=== PATIENT | male | born 1965 | race Two or more races ===

== ENCOUNTER 2018-04-12 09:07 | Inpatient (IN) | payer OTHER ==
--- NOTE | 2018-04-12 09:39 | PDOC ---
History of Present Illness - General Chief Complaint: Wound Stated Complaint: INFECTION,RT FOOT Time Seen by Provider: 04/12/18 09:39 History Source: Patient Exam Limitations: No Limitations - History of Present Illness Initial Comments: 04/12/18 10:08 53 year old male with PMH IDDM presented to ED for wound to right foot x1 week. Pt stated he does not have PCP and has not been evaluated for this until today. Pt denied fever, vomiting, lightheadedness, chest pain, shortness of breath. Pt was admitted for diabetic foot wound in 2016, was drained and wound culture grew morganella morganii, peptostreptococcus anaerobicus, strep agaltiae group B. Pt was treated with Zosyn and discharged on Levaquin. Pt stated since that admission he has not had a foot wound requiring admission. Past History - Past Medical History Allergies/Adverse Reactions: Allergies Allergy/AdvReac Type Severity Reaction Status Date / Time No Known Allergies Allergy Verified 04/12/18 09:14 Home Medications: Ambulatory Orders Insulin (Novolog) [Novolog -] 28 units AC 12/20/15 Insulin Glargine,Hum.rec.anlog [Basaglar Kwikpen U-100] 62 unit SQ HS 04/12/18 Metformin HCl [Glucophage] 1,000 mg PO BID 04/12/18 COPD: No CHF: No Diabetes: Yes - Surgical History Abdominal Surgery: Yes - Immunization History Immunization Up to Date: Yes - Suicide/Smoking/Psychosocial Hx Smoking History: Never smoked Have you smoked in the past 12 months: No Information on smoking cessation initiated: No Hx Alcohol Use: Yes Drug/Substance Use Hx: No Substance Use Type: None Hx Substance Use Treatment: No Review of Systems - Review of Systems Able to Perform ROS?: Yes Comments:: 04/12/18 10:13 General: denied fever, chills, night sweats, generalized weakness. HEENT: denied sore throat, rhinorrhea, ear pain. Heart: denied chest pain, palpitations, syncope, lower extremity swelling, diaphoresis. Respiratory: denied shortness of breath, cough, sputum production, hemoptysis. Abdomen: denied abdominal pain, nausea, vomiting, diarrhea, constipation, blood in stool. : denied dysuria, increased urinary frequency, hematuria, urinary incontinence , flank pain. Back: denied back pain. Musculoskeletal: denied joint pain, muscle pain, joint swelling. Neurological: denied headache, dizziness, numbness, tingling, weakness. Skin: admitted to rash, abscess. *Physical Exam - Vital Signs Last Vital Signs Temp Pulse Resp BP Pulse Ox 98.2 F 98 H 18 137/86 97 04/12/18 09:14 12 09:14 04/12/18 09:14 04/12/18 09:14 04/12/18 09:14 - Physical Exam Comments: 04/12/18 10:14 Constitutional: Well-nourished, Well-developed, appearing stated age. HEENT: head is normocephalic, atraumatic. EOMI. PERRLA. Neck: supple. Full ROM. Heart: regular rhythm. no murmurs, rubs or gallops. Lungs: clear to auscultation bilaterally. no crackles, rhonchi or wheezing. no stridor. Abdomen: soft, nontender. normal bowel sounds. no rebound, guarding, masses. Extremities: Peripheral pulses intact and equal. Neurological: CN 2-12 grossly intact. Moves all four extremities. Psych: awake, alert, oriented x3. Follows commands. Answers questions appropriately. Skin: 5.5 area of erythema with scattered areas of black tissue, open, bleeding , no purulent material with surrounding swelling to entire right foot. tender to palpation. no streaking. no crepitus. Moderate Sedation - Procedure Monitoring Vital Signs: Procedure Monitoring Vital Signs Temperature 98.2 F 04/12/18 09:14 Pulse Rate 98 H 04/12/18 09:14 Respiratory Rate 18 04/12/18 09:14 Blood Pressure 137/86 04/12/18 09:14 O2 Sat by Pulse Oximetry (%) 97 04/12/18 09:14 Procedures - Bedside Ultrasound Bedside Ultrasound: Skin Remarks: 04/12/18 11:00 Right foot US: cobblestone noted. 0.5x0.97cm hypodense structure noted, consistent with abscess. ED Treatment Course - LABORATORY CBC & Chemistry Diagram: 04/12/18 09:45 04/12/18 09:45 Medical Decision Making - Medical Decision Making 04/12/18 10:16 53 year old male with PMH IDDM presented to ED for right foot cellulitis/ abscess. Initial Vital Signs Temp Pulse Resp BP Pulse Ox 98.2 F 98 H 18 137/86 97 04/12/18 09:14 04/12/18 09:14 04/12/18 09:14 04/12/18 09:14 04/12/18 09:14 Afebrile. No tachycardia. No tachypnea. Mild hypertension. No hypoxia on room air. Pending labs for evaluation of SIRS, osteomyelitis, DKA. Pending XR right foot for evaluation of possible air producing microbacterium. Vancomycin and Zosyn ordered. 1000 cc bolus normal saline ordered for hydration. Tylenol ordered for pain. 04/12/18 10:56 CBC WBC 8.1 K/mm3 (4.0-10.0) 04/12/18 09:45 RBC 5.15 M/mm3 (4.00-5.60) 04/12/18 09:45 Hgb 13.9 GM/dL (11.7-16.9) 04/12/18 09:45 Hct 41.0 % (35.4-49) 04/12/18 09:45 MCV 79.5 fl (80-96) L 04/12/18 09:45 MCH 27.0 pg (25.7-33.7) 04/12/18 09:45 MCHC 34.0 g/dl (32.0-35.9) 04/12/18 09:45 RDW 14.9 % (11.9-15.9) 04/12/18 09:45 Plt Count 242 K/MM3 (134-434) 04/12/18 09:45 MPV 8.3 fl (7.5-11.1) D 04/12/18 09:45 Absolute Neuts (auto) 6.0 K/mm3 (1.5-8.0) 04/12/18 09:45 Neutrophils % 74.2 % (42.8-82.8) 04/12/18 09:45 Lymphocytes % 15.1 % (8-40) 04/12/18 09:45 Monocytes % 8.1 % (3.8-10.2) 04/12/18 09:45 Eosinophils % 1.6 % (0-4.5) D 04/12/18 09:45 Basophils % 1.0 % (0-2.0) 04/12/18 09:45 Nucleated RBC % 0 % (0-0) 04/12/18 09:45 No leukocytosis. No anemia. ESR 70 - Concerning for osteomyelitis VBG: normal pH. no DKA. CMP Sodium 135 mmol/L (136-145) L 04/12/18 09:45 Potassium 3.9 mmol/L (3.5-5.1) 04/12/18 09:45 Chloride 101 mmol/L (98-107) 04/12/18 09:45 Carbon Dioxide 25 mmol/L (21-32) 04/12/18 09:45 Anion Gap 10 MMOL/L (8-16) 04/12/18 09:45 BUN 14 mg/dL (7-18) 04/12/18 09:45 Creatinine 0.9 mg/dL (0.55-1.3) 04/12/18 09:45 Creat Clearance w eGFR > 60 (>60) 04/12/18 09:45 Lactic Acid 1.8 mmol/L (0.4-2.0) 04/12/18 09:45 Calcium 8.3 mg/dL (8.5-10.1) L 04/12/18 09:45 C-Reactive Protein 14.2 MG/DL (0.00-0.3) H 04/12/18 09:45 Elevated CRP. - Concerning for osteomyelitis. No electrolyte abnormalities. No MARVA. No lactic acidosis. Acetone negative. Glucose 361 - 1000 cc normal saline bolus given CXR: no acute pathology. EKG performed at 1031: rate 92, regular rhythm, normal axis, normal intervals, no acute ST changes. 04/12/18 13:15 XR right foot: no emphysematous changes. no acute fracture. Pt will be admitted for diabetic foot ulcer with concern for osteomyelitis. *DC/Admit/Observation/Transfer Diagnosis at time of Disposition: ESR raised, CRP elevated, Cellulitis Diabetic foot ulcer Qualifiers: Diabetic foot ulcer location: midfoot Diabetes mellitus type: type 2 Laterality : right Non-pressure ulcer stage: with fat layer exposed Qualified Code(s): E11.621 - Type 2 diabetes mellitus with foot ulcer - Discharge Dispostion Condition at time of disposition: Stable Decision to Admit order: Yes - Referrals - Patient Instructions - Post Discharge Activity
[2018-04-12] MEDS ORDERED: PIPERACILLIN/TAZOB 4.5 GM 4.5 GM in DEXTROSE 5%-WATER 100 ML IVPB ONE (10:09)
[2018-04-12] MEDS ORDERED: VANCOMYCIN 1,000 MG in DEXTROSE 5%-WATER - 250 ML IVPB ONE (10:09)
[2018-04-12] MEDS ORDERED: ACETAMINOPHEN 325 MG TABLET (FP) PO ONE (10:18)
[2018-04-12] MEDS ORDERED: SODIUM CHLORIDE 1,000 ML IV STA ×2 (10:18→13:02)
[2018-04-12 10:25] LABS: EOS % 1.6 % (0-4.5); HEMOGLOBIN 13.9 GM/dL (11.7-16.9); LYMPH % 15.1 % (8-40); MEAN CELL VOLUME 79.5 fl (80-96); MEAN PLT VOLUME 8.3 fl (7.5-11.1); MONO % 8.1 % (3.8-10.2); NEUT % 74.2 % (42.8-82.8); PLATELET COUNT 242 K/MM3 (134-434); RBC 5.15 M/mm3 (4.00-5.60); RDW 14.9 % (11.9-15.9); WHITE BLOOD COUNT 8.1 K/mm3 (4.0-10.0)
[2018-04-12] MEDS ORDERED: PIPERACILLIN/TAZOB 4.5 GM 4.5 GM/100 ML BAG IVPB ONE (10:25)
[2018-04-12] MEDS ORDERED: ACETAMINOPHEN 325 MG TABLET (FP) ONE (10:25)
[2018-04-12] MEDS ORDERED: VANCOMYCIN 1 GRAM (PRE-DOCKED) 1,000 MG/250 ML BAG IVPB ONE (10:25)
[2018-04-12 10:27] LABS: VENOUS PC02 41.3 mmHg (38-52); VENOUS PH 7.41 (7.32-7.42); VENOUS PO2 44.5 mmHg (28-48)
[2018-04-12 10:55] LABS: INR 1.4 (0.83-1.09); PROTHROMBIN TIME (PATIENT) 16.6 SEC (9.7-13.0)
[2018-04-12 10:58] LABS: ACTIVATED PTT 30.2 SECONDS (25.2-36.5)
--- NOTE | 2018-04-12 11:01 | PDOC ---
Attending Attestation - Resident Resident Name: Roxana Thurman - ED Attending Attestation I have performed the following: I have examined & evaluated the patient, The case was reviewed & discussed with the resident, I agree w/resident's findings & plan - HPI HPI: 04/12/18 10:58 53-year-old male with history of diabetes recently lost to follow-up over the last 2 months secondary to insurance reasons but still compliant with meds, history of chronic right foot ulcer resents now with 1 week of pain and swelling to the right foot, noted to have purulent discharge last night, presents for evaluation. Had chills over the weekend and took 3 days of amoxicillin, presents for evaluation. Has required debridement of an infection of the ulcer in the past. - Physicial Exam PE: 04/12/18 10:58 Afebrile, heart rate 90 at my examination, otherwise well-appearing Heart is regular, lungs are clear Right le-3 cm ulceration on the plantar aspect of the right foot over the distal first metatarsal, positive eschar, fluctuant to palpation, there is tracking cellulitis with circumferential swelling of the foot, warmth and erythema tracking up the medial aspect of the lower leg. There is no palpable crepitus, distal pulses are palpable - Medical Decision Making 04/12/18 10:59 53-year-old male diabetic with infected right foot ulcer, no evidence of SIRS or sepsis at this time. High risk for osteomyelitis and deeper tissue infections. Labs, wound culture Right foot x-ray Broad-spectrum antibiotics Admission Heart Score/ECG Review #1 ECG reviewed & interpreted by me at: 10:31 General ECG Interpretation: Sinus Rhythm, Normal Rate (92), Normal Intervals ( qtc 469), No acute ischemic changes
[2018-04-12 11:28] LABS: ANION GAP 10 MMOL/L (8-16); BLOOD UREA NITROGEN 14 mg/dL (7-18); CALCIUM 8.3 mg/dL (8.5-10.1); CHLORIDE 101 mmol/L (98-107); CO2 25 mmol/L (21-32); CREATININE 0.9 mg/dL (0.55-1.3); POTASSIUM 3.9 mmol/L (3.5-5.1); SODIUM 135 mmol/L (136-145)
[2018-04-12 12:44] LABS: GLUCOSE,RANDOM 316 mg/dL (74-106)
[2018-04-12] MEDS ORDERED: ONDANSETRON 4 MG/2 ML VIAL IVPUSH PRN (14:16)
[2018-04-12] MEDS ORDERED: ACETAMINOPHEN 325 MG TABLET (FP) PO PRN (14:16)
[2018-04-12] MEDS ORDERED: oxyCODONE HCL 5 MG TABLET PO PRN ×2 (14:16)
--- NOTE | 2018-04-12 14:23 | HP ---
Admitting History and Physical - Primary Care Physician PCP: None - Admission Chief Complaint: My foot is infected History of Present Illness: Mr Olivares is a 53 year old male who comes in with a right foot infection. He says he was in his normal state of health until about 6 days ago. He says he was walking and he felt pain in his foot. He says the pain is located in the ball of his right foot. He says at first it was a callus and it hurt which caused pain. He says it worsened over the past few days. However it recently burst and the pain resolved. With it bursting, he had purulent bloody drainage which prompted him to come to the hospital. Aside from this he was without complaint. He denies fevers, chills, lightheadedness, dizziness, passing out, chest pain or pressure, shortness of breath, nausea, vomiting, diarrhea, constipation, difficulty or pain on urination, or swelling. Patient speaks minimal bolivian, history obtained through language translator. History Source: Patient Limitations to Obtaining History: Language Barrier - Past Medical History Endocrine: Yes: Diabetes Mellitus - Past Surgical History Past Surgical History: Yes: Hernia Repair (inguinal) - Smoking History Smoking history: Never smoked Have you smoked in the past 12 months: No - Alcohol/Substance Use Hx Alcohol Use: Yes History of Substance Use: reports: None - Social History Usual Living Arrangement: Yes: Alone ADL: Independent History of Recent Travel: No Home Medications - Allergies Allergies/Adverse Reactions: Allergies Allergy/AdvReac Type Severity Reaction Status Date / Time No Known Allergies Allergy Verified 04/12/18 09:14 - Home Medications Home Medications: Ambulatory Orders Insulin (Novolog) [Novolog -] 28 units AC 12/20/15 Insulin Glargine,Hum.rec.anlog [Basaglar Kwikpen U-100] 62 unit SQ HS 04/12/18 Metformin HCl [Glucophage] 1,000 mg PO BID 04/12/18 Family Disease History - Family Disease History Family Disease History: Diabetes: Mother Review of Systems Findings/Remarks: Full review of systems obtained, as per HPI and otherwise negative Physical Examination Vital Signs: Vital Signs Temperature 36.8 C 04/12/18 09:14 Pulse Rate 98 H 04/12/18 09:14 Respiratory Rate 18 04/12/18 09:14 Blood Pressure 137/86 04/12/18 09:14 O2 Sat by Pulse Oximetry (%) 97 04/12/18 09:52 Constitutional: Yes: No Distress, Calm, Obese (morbid) Cardiovascular: Yes: Regular Rate and Rhythm. No: Gallop, Murmur, Rub Respiratory: Yes: Regular, CTA Bilaterally. No: Rales, Rhonchi, Wheezes Gastrointestinal: Yes: Normal Bowel Sounds, Soft. No: Distention, Tenderness Extremities: Yes: Other (R foot ulcer with purulent bloody drainage) Edema: No Labs: CBC, BMP 04/12/18 09:45 04/12/18 09:45 Imaging - Results X-ray: Report Reviewed, Image Reviewed Problem List - Problems (1) Diabetic foot ulcer Assessment/Plan: -case d/w Dr Moreira -place on vancomycin for MRSA coverage -place on zosyn for possible pseudomonas -MRI ordered -will need surgery, Dr Marin consulted Code(s): E11.621 - TYPE 2 DIABETES MELLITUS WITH FOOT ULCER; L97.509 - NON- PRESSURE CHRONIC ULCER OTH PRT UNSP FOOT W UNSP SEVERITY Qualifiers: Diabetic foot ulcer location: midfoot Diabetes mellitus type: type 2 Laterality: right Non-pressure ulcer stage: with fat layer exposed Qualified Code(s): E11.621 - Type 2 diabetes mellitus with foot ulcer; L97.412 - Non-pressure chronic ulcer of right heel and midfoot with fat layer exposed (2) Diabetes mellitus Assessment/Plan: -diabetic diet -takes lantus 62 units qhs -will change to levemir 30 units bid -takes novolog 28 units tidac -will place on novolog 10 units tidac since will be on a diabetic diet -check hgba1c -monitor glucose -will attempt to keep glucose below 180 to promote wound healing -continue metformin as is an insulin president [employer] Code(s): E11.9 - TYPE 2 DIABETES MELLITUS WITHOUT COMPLICATIONS Qualifiers: Diabetes mellitus type: type 2 Diabetes mellitus terminal superintendent insulin use: with detention use Diabetes mellitus complication status: with skin complications Diabetes mellitus complication detail: with foot ulcer Qualified Code(s): E11.621 - Type 2 diabetes mellitus with foot ulcer; L97.509 - Non-pressure chronic ulcer of other part of unspecified foot with unspecified severity; Z79.4 - [facility] (current) use of insulin (3) Morbid obesity Assessment/Plan: -will need outpatient weigh loss plan Code(s): E66.01 - MORBID (SEVERE) OBESITY DUE TO EXCESS CALORIES
[2018-04-12] MEDS: LACTOBACILLUS ACIDOPHILUS 1 TABLET PO SCH (14:54)
--- NOTE | 2018-04-12 15:14 | CONSULT ---
Consult Consult Specialty:: podiatry - History of Present Illness Chief Complaint: wound abscess right foot for 7 days History of Present Illness: patient states he had a callous that became infected. started 7 days ago. - History Source History Provided By: Patient - Past Medical History Endocrine: Yes: Diabetes Mellitus - Alcohol/Substance Use Hx Alcohol Use: Yes - Smoking History Smoking history: Never smoked Have you smoked in the past 12 months: No Home Medications - Allergies Allergies/Adverse Reactions: Allergies Allergy/AdvReac Type Severity Reaction Status Date / Time No Known Allergies Allergy Verified 04/12/18 09:14 - Home Medications Home Medications: Ambulatory Orders Insulin (Novolog) [Novolog -] 28 units AC 12/20/15 Insulin Glargine,Hum.rec.anlog [Basaglar Kwikpen U-100] 62 unit SQ HS 04/12/18 Metformin HCl [Glucophage] 1,000 mg PO BID 04/12/18 Physical Exam Vital Signs: Vital Signs Temperature 98.2 F 04/12/18 09:14 Pulse Rate 85 04/12/18 14:56 Respiratory Rate 16 04/12/18 14:56 Blood Pressure 122/77 04/12/18 14:56 O2 Sat by Pulse Oximetry (%) 95 04/12/18 14:56 Eyes: Yes: Cataracts Extremities: Yes: Other (abscess, cellulitis right foot sub metatarsal 1 with drainage, -mal odor, ascending cellulitis) Labs: CBC, BMP 04/12/18 09:45 04/12/18 09:45 Assessment/Plan abscess cellulitis r/o om dm with neuropathy Wound culture. MRI. Santyl to wound daily. Will follow. May need I&D. ID on case. Vascular consult Dr. Beckford.
--- NOTE | 2018-04-12 15:34 | CON.ID ---
Consult Consult Specialty:: infectious diseaases Referred by:: Reason for Consultation:: r/o osteo of the toe - History of Present Illness Chief Complaint: pain,swelling of the toe History of Present Illness: 53 year old male who comes in with a right foot infection. He says he was in his normal state of health until about 6 days ago. He says he was walking and he felt pain in his foot. He says the pain is located in the ball of his right foot. He says at first it was a callus and it hurt which caused pain. He says it worsened over the past few days. However it recently burst and the pain resolved. With it bursting, he had purulent bloody drainage which prompted him to come to the hospital. Aside from this he was without complaint. He denies fevers, chills, lightheadedness, dizziness, passing out, chest pain or pressure , shortness of breath, nausea, vomiting, diarrhea, constipation, difficulty or pain on urination, or swelling - History Source History Provided By: Patient, Medical Record Limitations to Obtaining History: Language Barrier - Past Medical History Endocrine: Yes: Diabetes Mellitus - Alcohol/Substance Use Hx Alcohol Use: Yes - Smoking History Smoking history: Never smoked Have you smoked in the past 12 months: No Home Medications - Allergies Allergies/Adverse Reactions: Allergies Allergy/AdvReac Type Severity Reaction Status Date / Time No Known Allergies Allergy Verified 04/12/18 09:14 - Home Medications Home Medications: Ambulatory Orders Insulin (Novolog) [Novolog -] 28 units AC 12/20/15 Insulin Glargine,Hum.rec.anlog [Basaglar Kwikpen U-100] 62 unit SQ HS 04/12/18 Metformin HCl [Glucophage] 1,000 mg PO BID 04/12/18 Review of Systems - Review of Systems Constitutional: reports: No Symptoms Eyes: reports: No Symptoms HENT: reports: No Symptoms Neck: reports: No Symptoms Cardiovascular: reports: No Symptoms Respiratory: reports: No Symptoms Gastrointestinal: reports: No Symptoms Genitourinary: reports: No Symptoms Musculoskeletal: reports: Joint Pain Integumentary: reports: Change in Color, Erythema, Wound Neurological: reports: No Symptoms Endocrine: reports: No Symptoms Hematology/Lymphatic: reports: No Symptoms Psychiatric: reports: No Symptoms Physical Exam Vital Signs: Vital Signs Temperature 98.2 F 04/12/18 09:14 Pulse Rate 85 04/12/18 14:56 Respiratory Rate 16 04/12/18 14:56 Blood Pressure 122/77 04/12/18 14:56 O2 Sat by Pulse Oximetry (%) 95 04/12/18 14:56 Constitutional: Yes: Well Nourished, No Distress, Obese Eyes: Yes: Conjunctiva Clear Neck: Yes: Supple, Trachea Midline Cardiovascular: Yes: Regular Rate and Rhythm Respiratory: Yes: Regular, CTA Bilaterally Gastrointestinal: Yes: Normal Bowel Sounds, Soft Musculoskeletal: Yes: Other Extremities: Yes: Erythema, Other Neurological: Yes: Alert, Oriented Psychiatric: Yes: Alert, Oriented Labs: CBC, BMP 04/12/18 09:45 04/12/18 09:45 Imaging - Results Chest X-ray: Report Reviewed, Image Reviewed X-ray: Report Reviewed, Image Reviewed Assessment/Plan Problem List - Problems (1) Diabetic foot ulcer Code(s): E11.621 - TYPE 2 DIABETES MELLITUS WITH FOOT ULCER; L97.509 - NON- PRESSURE CHRONIC ULCER OTH PRT UNSP FOOT W UNSP SEVERITY Qualifiers: Diabetic foot ulcer location: midfoot Diabetes mellitus type: type 2 Laterality: right Non-pressure ulcer stage: with fat layer exposed Qualified Code(s): E11.621 - Type 2 diabetes mellitus with foot ulcer; L97.412 - Non-pressure chronic ulcer of right heel and midfoot with fat layer exposed (2) Diabetes mellitus Code(s): E11.9 - TYPE 2 DIABETES MELLITUS WITHOUT COMPLICATIONS Qualifiers: Diabetes mellitus type: type 2 Diabetes mellitus long-term insulin use: with long-term use Diabetes mellitus complication status: with skin complications Diabetes mellitus complication detail: with foot ulcer Qualified Code(s): E11.621 - Type 2 diabetes mellitus with foot ulcer; L97.509 - Non-pressure chronic ulcer of other part of unspecified foot with unspecified severity; Z79.4 - technician terminal and repeater (current) use of insulin (3) Morbid obesity Assessment/Plan: -will need outpatient weigh loss plan Code(s): E66.01 - MORBID (SEVERE) OBESITY DUE TO EXCESS CALORIES plan will start on vanco and zosyn follow vanco levels podiatry mri wound care rest as per the team
[2018-04-12] MEDS ORDERED: INSULIN (LEVEMIR) 100 UNITS/ML UNITS SQ SCH (16:30)
[2018-04-12] MEDS: INSULIN SLIDING SCALE (NOVOLOG) 1 VIAL SQ SCH ×2 (17:33→21:55)
[2018-04-12] MEDS: INSULIN (NOVOLOG) ASPART 100 UNITS/ML 10ML VIAL SQ SCH (17:33)
[2018-04-12] MEDS ORDERED: PIPERACILLIN/TAZOBACTAM 3.375 GM VIAL IVPB ONE ×3 (17:36→23:35)
[2018-04-12] MEDS ORDERED: DEXTROSE 5%-WATER - 50 ML IVPB ONE ×3 (17:36→23:35)
[2018-04-12] MEDS: metFORMIN HCL 500 MG TABLET (FP) PO SCH (17:37)
[2018-04-12] MEDS: PIPERACILLIN/TAZOB 3.375 GM 3.375 GM in DEXTROSE 5%-WATER - 50 ML IVPB SCH (17:37)
[2018-04-12] MEDS ORDERED: PIPERACILLIN/TAZOB 4.5 GM 4.5 GM in DEXTROSE 5%-WATER 100 ML IVPB SCH (18:00)
[2018-04-12] MEDS: DOCUSATE SODIUM 100 MG CAPSULE (FP) PO SCH (21:50)
[2018-04-12] MEDS: INSULIN (LEVEMIR) 100 UNITS/ML UNITS SQ SCH (21:57)
[2018-04-12] MEDS ORDERED: VANCOMYCIN 1,500 MG in DEXTROSE 5%-WATER - 250 ML IVPB ONE (22:00)
[2018-04-12] MEDS ORDERED: VANCOMYCIN 1,500 MG in DEXTROSE 5%-WATER - 250 ML IVPB SCH (22:00)
[2018-04-12] MEDS ORDERED: VANCOMYCIN 1,500 MG in DEXTROSE 5%-WATER - 500 ML IVPB ONE (22:34)
[2018-04-13] MEDS: PIPERACILLIN/TAZOB 3.375 GM 3.375 GM in DEXTROSE 5%-WATER - 50 ML IVPB SCH ×3 (01:05→17:20)
[2018-04-13] MEDS: INSULIN (LEVEMIR) 100 UNITS/ML UNITS SQ SCH ×2 (06:19→22:28)
[2018-04-13] MEDS: INSULIN (NOVOLOG) ASPART 100 UNITS/ML 10ML VIAL SQ SCH ×3 (06:29→16:32)
[2018-04-13] MEDS: metFORMIN HCL 500 MG TABLET (FP) PO SCH ×2 (06:29→16:30)
[2018-04-13] MEDS: INSULIN SLIDING SCALE (NOVOLOG) 1 VIAL SQ SCH ×4 (06:29→22:31)
[2018-04-13 06:53] LABS: BASO % 0.6 % (0-2.0); EOS % 3.6 % (0-4.5); HEMATOCRIT 37.6 % (35.4-49); HEMOGLOBIN 12.1 GM/dL (11.7-16.9); LYMPH % 18.7 % (8-40); MCH 25.8 pg (25.7-33.7); MCHC 32.1 g/dl (32.0-35.9); MEAN CELL VOLUME 80.4 fl (80-96); MEAN PLT VOLUME 7.8 fl (7.5-11.1); MONO % 10.4 % (3.8-10.2); NEUT % 66.7 % (42.8-82.8); PLATELET COUNT 252 K/MM3 (134-434); RBC 4.67 M/mm3 (4.00-5.60); RDW 14.8 % (11.9-15.9); WHITE BLOOD COUNT 6.4 K/mm3 (4.0-10.0)
[2018-04-13] MEDS ORDERED: INSULIN (NOVOLOG) ASPART 100 UNITS/ML 10ML VIAL ONE (06:57)
[2018-04-13 07:31] LABS: ANION GAP 6 MMOL/L (8-16); BLOOD UREA NITROGEN 11 mg/dL (7-18); CALCIUM 7.6 mg/dL (8.5-10.1); CHLORIDE 102 mmol/L (98-107); CO2 28 mmol/L (21-32); CREATININE 0.8 mg/dL (0.55-1.3); GLUCOSE,RANDOM 283 mg/dL (74-106); MAGNESIUM 1.8 mg/dL (1.8-2.4); PHOSPHOROUS 3.7 mg/dL (2.5-4.9); POTASSIUM 4.1 mmol/L (3.5-5.1); SODIUM 135 mmol/L (136-145)
--- NOTE | 2018-04-13 07:45 | PN ---
Progress Note, Physician Chief Complaint: Feels less pain hemodynamically stable History of Present Illness: 53 year old male who comes in with a right foot infection. H/O DM and obesity - Current Medication List Current Medications: Active Medications Acetaminophen (Tylenol -) 650 mg PO Q4H PRN PRN Reason: FEVER Collagenase (Santyl -) 1 applic TP DAILY [facility]; Protocol Docusate Sodium (Colace -) 100 mg PO BID [facility] Last Admin: 04/12/18 21:50 Dose: 100 mg Enoxaparin Sodium (Lovenox -) 40 mg SQ DAILY [facility] Vancomycin HCl 1,500 mg/ (Dextrose) 250 mls @ 166.667 mls/hr IVPB Q12H [facility]; Protocol Piperacillin Sod/Tazobactam (Sod 3.375 gm/ Dextrose) 50 mls @ 100 mls/hr IVPB Q8H-IV [facility]; Protocol Last Admin: 04/13/18 01:05 Dose: 100 mls/hr Insulin Aspart (Novolog Vial) 10 units SQ TIDAC [facility] Last Admin: 04/13/18 06:29 Dose: Not Given Insulin Aspart (Novolog Vial Sliding Scale -) 1 vial SQ ACHS [facility]; Protocol Last Admin: 04/13/18 06:29 Dose: Not Given Insulin Detemir (Levemir Vial) 30 units SQ 0700,2200 [facility] Last Admin: 04/13/18 06:19 Dose: Not Given Lactobacillus Acidophilus (Bacid -) 1 tab PO DAILY [facility] Last Admin: 04/12/18 14:54 Dose: Not Given Metformin HCl (Glucophage -) 1,000 mg PO BIDAC [facility] Last Admin: 04/13/18 06:29 Dose: Not Given Ondansetron HCl (Zofran Injection) 4 mg IVPUSH Q6H PRN PRN Reason: NAUSEA Oxycodone HCl (Roxicodone -) 5 mg PO Q6H PRN PRN Reason: PAIN LEVEL 4 - 6 Oxycodone HCl (Roxicodone -) 10 mg PO Q6H PRN PRN Reason: PAIN LEVEL 7 - 10 Polyethylene Glycol (Miralax (For Daily Use) -) 17 gm PO DAILY [facility] - Objective Vital Signs: Vital Signs Temperature 97.9 F 04/13/18 06:00 Pulse Rate 84 04/13/18 06:00 Respiratory Rate 18 04/13/18 06:00 Blood Pressure 121/71 04/13/18 06:00 O2 Sat by Pulse Oximetry (%) 93 L 04/12/18 21:00 Constitutional: Yes: No Distress, Calm, Obese (morbid) Cardiovascular: Yes: Regular Rate and Rhythm. No: Gallop, Murmur, Rub Respiratory: Yes: Regular, CTA Bilaterally. No: Rales, Rhonchi, Wheezes Gastrointestinal: Yes: Normal Bowel Sounds, Soft. No: Distention, Tenderness Extremities: Yes: Other (R foot ulcer with purulent bloody drainage) Edema: No Labs: INR, PTT INR 1.40 (0.83-1.09) H 04/12/18 09:45 CBC, BMP 04/13/18 06:00 04/13/18 06:00 Problem List - Problems (1) Diabetic foot ulcer Assessment/Plan: Infected evaluted by Poditray consult will consider I and D mean time cont IV abx F/U Cultures Code(s): E11.621 - TYPE 2 DIABETES MELLITUS WITH FOOT ULCER; L97.509 - NON- PRESSURE CHRONIC ULCER OTH PRT UNSP FOOT W UNSP SEVERITY Qualifiers: Diabetic foot ulcer location: midfoot Diabetes mellitus type: type 2 Laterality: right Non-pressure ulcer stage: with fat layer exposed Qualified Code(s): E11.621 - Type 2 diabetes mellitus with foot ulcer; L97.412 - Non-pressure chronic ulcer of right heel and midfoot with fat layer exposed (2) Diabetes mellitus Assessment/Plan: Poorly controlled F/U HBa!C will optimize as per Fs and HbA!C level, Code(s): E11.9 - TYPE 2 DIABETES MELLITUS WITHOUT COMPLICATIONS Qualifiers: Diabetes mellitus type: type 2 Diabetes mellitus watermaster insulin use: with correction use Diabetes mellitus complication status: with skin complications Diabetes mellitus complication detail: with foot ulcer Qualified Code(s): E11.621 - Type 2 diabetes mellitus with foot ulcer; L97.509 - Non-pressure chronic ulcer of other part of unspecified foot with unspecified severity; Z79.4 - residential (current) use of insulin (3) Morbid obesity Assessment/Plan: Chronic nutrition consult as out patient. Code(s): E66.01 - MORBID (SEVERE) OBESITY DUE TO EXCESS CALORIES
[2018-04-13] MEDS ORDERED: DEXTROSE 5%-WATER - 50 ML IVPB ONE ×4 (08:58→17:17)
[2018-04-13] MEDS ORDERED: PIPERACILLIN/TAZOBACTAM 3.375 GM VIAL IVPB ONE ×4 (08:58→17:17)
[2018-04-13] MEDS: DOCUSATE SODIUM 100 MG CAPSULE (FP) PO SCH ×2 (09:19→22:28)
[2018-04-13] MEDS: LACTOBACILLUS ACIDOPHILUS 1 TABLET PO SCH (09:19)
[2018-04-13] MEDS: ENOXAPARIN NA (PORCINE) 40 MG/0.4 ML DISP.SYRIN SQ SCH (09:20)
[2018-04-13] MEDS: COLLAGENASE CLOSTRIDIUM HIST. 30 GRAMS TUBE TP SCH (09:37)
[2018-04-13] MEDS: POLYETHYLENE GLYCOL 3350 119 GM BTL PO SCH (09:37)
[2018-04-13 10:03] LABS: CHOLESTEROL 136 mg/dL (50-200); HDL CHOLESTEROL 24 mg/dL (40-60); TRIGLYCERIDES 119 mg/dL (0-150)
--- NOTE | 2018-04-13 10:11 | CONSULT ---
- Consultation REQUESTING PROVIDER: CONSULT REQUEST: We have been asked to surgically evaluate this patient for Right foot plantar wound PCP:Noelle Jang MD HISTORY OF PRESENT ILLNESS: 53yo M was admitted to the hospital infected right foot wound. Pt has a history of chronic wound on the plantar aspect of right foot, was last seen by Dr. Beckford in the hospital on 12/22/17. Pt states that on Wednesday the wound started leaking foul fluid. Pt states that he had chills last night, but no recorded fever. Pt denies n/v. Pt denies history of vascular problems PMHx: DM Home Medications Medication Instructions Recorded Insulin (Novolog) [Novolog -] 28 units AC 12/20/15 Insulin Glargine,Hum.rec.anlog 62 unit SQ HS 04/12/18 [Basaglar Kwikpen U-100] Metformin HCl [Glucophage] 1,000 mg PO BID 04/12/18 Allergies Allergy/AdvReac Type Severity Reaction Status Date / Time No Known Allergies Allergy Verified 04/12/18 09:14 PHYSICAL EXAM: GENERAL: Awake, alert, and fully oriented, in no acute distress. HEAD: Normal with no signs of trauma. EYES: PERRL, sclera anicteric, conjunctiva clear. NECK: Normal ROM LUNGS: breathing comfortably, No accessory muscle use. HEART: Regular rate and rhythm. No murmurs LOWER EXTREMITIES: 2+ pulses, warm, well-perfused. No calf tenderness. +1 edema , wound over 1st and 2nd metatarsal plantar aspect with active purulent drainage and erythema. NEUROLOGICAL: Normal speech, gait not observed. PSYCH: Cooperative. Good eye contact. Appropriate mood and affect. Vital Signs Temperature 97.9 F 04/13/18 06:00 Pulse Rate 84 04/13/18 06:00 Respiratory Rate 18 04/13/18 09:00 Blood Pressure 121/71 04/13/18 06:00 O2 Sat by Pulse Oximetry (%) 95 04/13/18 09:00 Lab Results WBC 6.4 K/mm3 (4.0-10.0) 04/13/18 06:00 RBC 4.67 M/mm3 (4.00-5.60) 04/13/18 06:00 Hgb 12.1 GM/dL (11.7-16.9) 04/13/18 06:00 Hct 37.6 % (35.4-49) 04/13/18 06:00 MCV 80.4 fl (80-96) 04/13/18 06:00 MCHC 32.1 g/dl (32.0-35.9) 04/13/18 06:00 RDW 14.8 % (11.9-15.9) 04/13/18 06:00 Plt Count 252 K/MM3 (134-434) 04/13/18 06:00 Sodium 135 mmol/L (136-145) L 04/13/18 06:00 Potassium 4.1 mmol/L (3.5-5.1) 04/13/18 06:00 Chloride 102 mmol/L (98-107) 04/13/18 06:00 Carbon Dioxide 28 mmol/L (21-32) 04/13/18 06:00 Anion Gap 6 MMOL/L (8-16) L 04/13/18 06:00 BUN 11 mg/dL (7-18) 04/13/18 06:00 Creatinine 0.8 mg/dL (0.55-1.3) 04/13/18 06:00 Random Glucose 283 mg/dL (74-106) H 04/13/18 06:00 Calcium 7.6 mg/dL (8.5-10.1) L 04/13/18 06:00 Blood Type O POSITIVE 04/12/18 17:25 Antibody Screen Negative 04/12/18 09:45 INR 1.40 (0.83-1.09) H 04/12/18 09:45 Problem List - Problems (1) Diabetic foot ulcer Assessment/Plan: Plan -pt has no signs of vascular issues -pt planned for I&D by podiatry today -wound care as per podiatry Case discussed with Dr. Beckford, who agrees with plan. Code(s): E11.621 - TYPE 2 DIABETES MELLITUS WITH FOOT ULCER; L97.509 - NON- PRESSURE CHRONIC ULCER OTH PRT UNSP FOOT W UNSP SEVERITY Qualifiers: Diabetic foot ulcer location: midfoot Diabetes mellitus type: type 2 Laterality: right Non-pressure ulcer stage: with fat layer exposed Qualified Code(s): E11.621 - Type 2 diabetes mellitus with foot ulcer; L97.412 - Non-pressure chronic ulcer of right heel and midfoot with fat layer exposed
--- NOTE | 2018-04-13 11:44 | PN ---
Progress Note, Physician History of Present Illness: stable had chills last night currently doing well - Current Medication List Current Medications: Active Medications Acetaminophen (Tylenol -) 650 mg PO Q4H PRN PRN Reason: FEVER Collagenase (Santyl -) 1 applic TP DAILY [facility]; Protocol Last Admin: 04/13/18 09:37 Dose: 2 mm Docusate Sodium (Colace -) 100 mg PO BID [facility] Last Admin: 04/13/18 09:19 Dose: 100 mg Enoxaparin Sodium (Lovenox -) 40 mg SQ DAILY [facility] Last Admin: 04/13/18 09:20 Dose: 40 mg Vancomycin HCl 1,500 mg/ (Dextrose) 250 mls @ 166.667 mls/hr IVPB Q12H [facility]; Protocol Piperacillin Sod/Tazobactam (Sod 3.375 gm/ Dextrose) 50 mls @ 100 mls/hr IVPB Q8H-IV [facility]; Protocol Last Admin: 04/13/18 09:19 Dose: 100 mls/hr Insulin Aspart (Novolog Vial) 10 units SQ TIDAC [facility] Last Admin: 04/13/18 11:35 Dose: 10 units Insulin Aspart (Novolog Vial Sliding Scale -) 1 vial SQ ACHS [facility]; Protocol Last Admin: 04/13/18 11:36 Dose: 12 units Insulin Detemir (Levemir Vial) 30 units SQ 0700,2200 [facility] Last Admin: 04/13/18 06:19 Dose: Not Given Lactobacillus Acidophilus (Bacid -) 1 tab PO DAILY [facility] Last Admin: 04/13/18 09:19 Dose: 1 tab Metformin HCl (Glucophage -) 1,000 mg PO BIDAC [facility] Last Admin: 04/13/18 06:29 Dose: Not Given Ondansetron HCl (Zofran Injection) 4 mg IVPUSH Q6H PRN PRN Reason: NAUSEA Oxycodone HCl (Roxicodone -) 5 mg PO Q6H PRN PRN Reason: PAIN LEVEL 4 - 6 Oxycodone HCl (Roxicodone -) 10 mg PO Q6H PRN PRN Reason: PAIN LEVEL 7 - 10 Polyethylene Glycol (Miralax (For Daily Use) -) 17 gm PO DAILY [facility] Last Admin: 04/13/18 09:37 Dose: 17 grams - Objective Vital Signs: Vital Signs Temperature 97.9 F 04/13/18 06:00 Pulse Rate 84 04/13/18 06:00 Respiratory Rate 18 04/13/18 09:00 Blood Pressure 121/71 04/13/18 06:00 O2 Sat by Pulse Oximetry (%) 95 04/13/18 09:00 Constitutional: Yes: No Distress, Calm, Obese Cardiovascular: Yes: Regular Rate and Rhythm Respiratory: Yes: Regular, CTA Bilaterally Gastrointestinal: Yes: Normal Bowel Sounds, Soft Extremities: Yes: WNL Edema: RLE: 1+ Integumentary: Yes: Erythema Wound/Incision: Yes: Other Neurological: Yes: Alert, Oriented Psychiatric: Yes: Alert, Oriented Labs: CBC, BMP 04/13/18 06:00 04/13/18 06:00 INR, PTT INR 1.40 (0.83-1.09) H 04/12/18 09:45 Assessment/Plan Problem List - Problems (1) Diabetic foot ulcer Code(s): E11.621 - TYPE 2 DIABETES MELLITUS WITH FOOT ULCER; L97.509 - NON- PRESSURE CHRONIC ULCER OTH PRT UNSP FOOT W UNSP SEVERITY Qualifiers: Diabetic foot ulcer location: midfoot Diabetes mellitus type: type 2 Laterality: right Non-pressure ulcer stage: with fat layer exposed Qualified Code(s): E11.621 - Type 2 diabetes mellitus with foot ulcer; L97.412 - Non-pressure chronic ulcer of right heel and midfoot with fat layer exposed (2) Diabetes mellitus Code(s): E11.9 - TYPE 2 DIABETES MELLITUS WITHOUT COMPLICATIONS Qualifiers: Diabetes mellitus type: type 2 Diabetes mellitus intermediate card tender insulin use: with intermediate card tender use Diabetes mellitus complication status: with skin complications Diabetes mellitus complication detail: with foot ulcer Qualified Code(s): E11.621 - Type 2 diabetes mellitus with foot ulcer; L97.509 - Non-pressure chronic ulcer of other part of unspecified foot with unspecified severity; Z79.4 - care home (current) use of insulin (3) Morbid obesity Assessment/Plan: -will need outpatient weigh loss plan Code(s): E66.01 - MORBID (SEVERE) OBESITY DUE TO EXCESS CALORIES plan ct abx follow vanco levels podiatry await for mri await for cx reports rest as per the team
--- NOTE | 2018-04-13 13:04 | EKG ---
Test Reason : Blood Pressure : / mmHG Vent. Rate : 092 BPM Atrial Rate : 092 BPM P-R Int : 158 ms QRS Dur : 088 ms QT Int : 380 ms P-R-T Axes : 032 -06 030 degrees QTc Int : 469 ms POOR DATA QUALITY, INTERPRETATION MAY BE ADVERSELY AFFECTED NORMAL SINUS RHYTHM POSSIBLE LEFT ATRIAL ENLARGEMENT BORDERLINE ECG WHEN COMPARED WITH ECG OF 20-DEC-2015 14:30, FUSION COMPLEXES ARE NO LONGER PRESENT PREMATURE VENTRICULAR COMPLEXES ARE NO LONGER PRESENT Confirmed by MADAI MOREIRA, DIANNE ([id number]) on 04/13/2018 1:03:56 PM Referred By: Confirmed By:DIANNE AJ MD
[2018-04-13] MEDS ORDERED: DEXTROSE 50%-WATER - 25 GM/50 ML VIAL ONE (17:14)
[2018-04-13] MEDS ORDERED: VANCOMYCIN 1,500 MG in DEXTROSE 5%-WATER - 500 ML IVPB ONE (22:00)
[2018-04-14] MEDS ORDERED: PIPERACILLIN/TAZOBACTAM 3.375 GM VIAL IVPB ONE ×2 (00:12→08:40)
[2018-04-14] MEDS ORDERED: DEXTROSE 5%-WATER - 50 ML IVPB ONE ×2 (00:12→08:40)
[2018-04-14] MEDS: PIPERACILLIN/TAZOB 3.375 GM 3.375 GM in DEXTROSE 5%-WATER - 50 ML IVPB SCH ×2 (04:00→09:58)
[2018-04-14] MEDS: INSULIN (NOVOLOG) ASPART 100 UNITS/ML 10ML VIAL SQ SCH ×3 (06:05→16:29)
[2018-04-14] MEDS: INSULIN (LEVEMIR) 100 UNITS/ML UNITS SQ SCH ×2 (06:06→22:59)
[2018-04-14] MEDS: metFORMIN HCL 500 MG TABLET (FP) PO SCH ×2 (06:08→16:28)
[2018-04-14] MEDS: INSULIN SLIDING SCALE (NOVOLOG) 1 VIAL SQ SCH ×4 (06:08→22:57)
[2018-04-14] MEDS ORDERED: INSULIN (NOVOLOG) ASPART 100 UNITS/ML 10ML VIAL ONE ×2 (06:47→11:11)
[2018-04-14] MEDS ORDERED: INSULIN (LEVEMIR) 100 UNITS/ML UNITS SQ ONE (06:47)
[2018-04-14 07:11] LABS: BASO % 0.8 % (0-2.0); EOS % 4.1 % (0-4.5); HEMATOCRIT 39.7 % (35.4-49); HEMOGLOBIN 12.6 GM/dL (11.7-16.9); LYMPH % 25.9 % (8-40); MCH 25.5 pg (25.7-33.7); MCHC 31.7 g/dl (32.0-35.9); MEAN CELL VOLUME 80.5 fl (80-96); MEAN PLT VOLUME 7.7 fl (7.5-11.1); NEUT % 58.2 % (42.8-82.8); PLATELET COUNT 259 K/MM3 (134-434); RBC 4.93 M/mm3 (4.00-5.60); RDW 14.8 % (11.9-15.9); WHITE BLOOD COUNT 6.1 K/mm3 (4.0-10.0)
[2018-04-14 07:29] LABS: ANION GAP 9 MMOL/L (8-16); BLOOD UREA NITROGEN 12 mg/dL (7-18); CALCIUM 7.7 mg/dL (8.5-10.1); CHLORIDE 103 mmol/L (98-107); CO2 25 mmol/L (21-32); CREATININE 0.8 mg/dL (0.55-1.3); GLUCOSE,RANDOM 265 mg/dL (74-106); SODIUM 136 mmol/L (136-145)
[2018-04-14] MEDS ORDERED: INSULIN (LEVEMIR) 100 UNITS/ML UNITS SQ SCH (08:05)
--- NOTE | 2018-04-14 08:06 | PN ---
Progress Note, Physician Chief Complaint: Feels less pain hemodynamically stable History of Present Illness: 53 year old male who comes in with a right foot infection. H/O DM and obesity - Current Medication List Current Medications: Active Medications Acetaminophen (Tylenol -) 650 mg PO Q4H PRN PRN Reason: FEVER Last Admin: 04/14/18 08:47 Dose: 650 mg Collagenase (Santyl -) 1 applic TP DAILY [facility]; Protocol Last Admin: 04/13/18 09:37 Dose: 2 mm Docusate Sodium (Colace -) 100 mg PO BID [facility] Last Admin: 04/13/18 22:28 Dose: 100 mg Enoxaparin Sodium (Lovenox -) 40 mg SQ DAILY [facility] Last Admin: 04/13/18 09:20 Dose: 40 mg Vancomycin HCl 1,500 mg/ (Dextrose) 250 mls @ 166.667 mls/hr IVPB Q12H [facility]; Protocol Piperacillin Sod/Tazobactam (Sod 3.375 gm/ Dextrose) 50 mls @ 100 mls/hr IVPB Q8H-IV [facility]; Protocol Last Admin: 04/14/18 04:00 Dose: 100 mls/hr Insulin Aspart (Novolog Vial Sliding Scale -) 1 vial SQ ACHS [facility]; Protocol Last Admin: 04/14/18 06:08 Dose: 9 units Insulin Aspart (Novolog Vial) 20 units SQ TIDAC [facility] Insulin Detemir (Levemir Vial) 50 units SQ 0700,2200 [facility] Lactobacillus Acidophilus (Bacid -) 1 tab PO DAILY [facility] Last Admin: 04/13/18 09:19 Dose: 1 tab Metformin HCl (Glucophage -) 1,000 mg PO BIDAC [facility] Last Admin: 04/14/18 06:08 Dose: 1,000 mg Ondansetron HCl (Zofran Injection) 4 mg IVPUSH Q6H PRN PRN Reason: NAUSEA Oxycodone HCl (Roxicodone -) 5 mg PO Q6H PRN PRN Reason: PAIN LEVEL 4 - 6 Oxycodone HCl (Roxicodone -) 10 mg PO Q6H PRN PRN Reason: PAIN LEVEL 7 - 10 Polyethylene Glycol (Miralax (For Daily Use) -) 17 gm PO DAILY [facility] Last Admin: 04/13/18 09:37 Dose: 17 grams - Objective Vital Signs: Vital Signs Temperature 98.5 F 04/14/18 05:37 Pulse Rate 81 04/14/18 05:37 Respiratory Rate 18 04/14/18 05:37 Blood Pressure 106/50 L 04/14/18 05:37 O2 Sat by Pulse Oximetry (%) 95 04/13/18 20:57 Constitutional: Yes: No Distress, Calm, Obese (morbid) Cardiovascular: Yes: Regular Rate and Rhythm. No: Gallop, Murmur, Rub Respiratory: Yes: Regular, CTA Bilaterally. No: Rales, Rhonchi, Wheezes Gastrointestinal: Yes: Normal Bowel Sounds, Soft. No: Distention, Tenderness Extremities: Yes: Other (R foot ulcer with purulent bloody drainage) Edema: No Labs: CBC, BMP 04/14/18 06:00 INR, PTT INR 1.40 (0.83-1.09) H 04/12/18 09:45 Problem List - Problems (1) Diabetic foot ulcer Assessment/Plan: Infected evaluated by Podiatry consult will consider I and D mean time cont IV abx Vancomycin and Zosyn as ID F/U Cultures Code(s): E11.621 - TYPE 2 DIABETES MELLITUS WITH FOOT ULCER; L97.509 - NON- PRESSURE CHRONIC ULCER OTH PRT UNSP FOOT W UNSP SEVERITY Qualifiers: Diabetic foot ulcer location: midfoot Diabetes mellitus type: type 2 Laterality: right Non-pressure ulcer stage: with fat layer exposed Qualified Code(s): E11.621 - Type 2 diabetes mellitus with foot ulcer; L97.412 - Non-pressure chronic ulcer of right heel and midfoot with fat layer exposed (2) Diabetes mellitus Assessment/Plan: Poorly controlled HBA!C is high increse Levimir 50 BID (Home Basoglar 62 BID) Remeal 20 TID (Home dose 28 TID) HBA!C 10.8 Code(s): E11.9 - TYPE 2 DIABETES MELLITUS WITHOUT COMPLICATIONS Qualifiers: Diabetes mellitus type: type 2 Diabetes mellitus mcc insulin use: with watermelon inspector use Diabetes mellitus complication status: with skin complications Diabetes mellitus complication detail: with foot ulcer Qualified Code(s): E11.621 - Type 2 diabetes mellitus with foot ulcer; L97.509 - Non-pressure chronic ulcer of other part of unspecified foot with unspecified severity; Z79.4 - emt intermediate (current) use of insulin (3) Morbid obesity Assessment/Plan: Chronic nutrition consult as out patient. Code(s): E66.01 - MORBID (SEVERE) OBESITY DUE TO EXCESS CALORIES
--- NOTE | 2018-04-14 09:44 | PN ---
Progress Note (short form) - Note Progress Note: Pt seen in bed. vss, Tmax 98.5 +improving cellulitis, +drainage, -mal odor, wbc=6.1, zwug3s=82.6, abscess cellulitis Will evaluate in am for possible debridement. Betadine dressing change. Continue IVABX. Will follow. May need surgical intervention. Discussed with ID.
[2018-04-14] MEDS: ENOXAPARIN NA (PORCINE) 40 MG/0.4 ML DISP.SYRIN SQ SCH (09:57)
[2018-04-14] MEDS: LACTOBACILLUS ACIDOPHILUS 1 TABLET PO SCH (09:57)
[2018-04-14] MEDS: DOCUSATE SODIUM 100 MG CAPSULE (FP) PO SCH ×2 (09:57→23:00)
[2018-04-14] MEDS: POLYETHYLENE GLYCOL 3350 119 GM BTL PO SCH (09:59)
[2018-04-14] MEDS: COLLAGENASE CLOSTRIDIUM HIST. 30 GRAMS TUBE TP SCH (10:18)
--- NOTE | 2018-04-14 10:45 | PN ---
Progress Note, Physician History of Present Illness: patient stable no new issues podiatry following - Current Medication List Current Medications: Active Medications Acetaminophen (Tylenol -) 650 mg PO Q4H PRN PRN Reason: FEVER Last Admin: 04/14/18 08:47 Dose: 650 mg Collagenase (Santyl -) 1 applic TP DAILY [facility]; Protocol Last Admin: 04/14/18 10:18 Dose: Not Given Docusate Sodium (Colace -) 100 mg PO BID [facility] Last Admin: 04/14/18 09:57 Dose: 100 mg Enoxaparin Sodium (Lovenox -) 40 mg SQ DAILY [facility] Last Admin: 04/14/18 09:57 Dose: 40 mg Vancomycin HCl 1,500 mg/ (Dextrose) 250 mls @ 166.667 mls/hr IVPB Q12H [facility]; Protocol Piperacillin Sod/Tazobactam (Sod 3.375 gm/ Dextrose) 50 mls @ 100 mls/hr IVPB Q8H-IV [facility]; Protocol Last Admin: 04/14/18 09:58 Dose: 100 mls/hr Vancomycin HCl 1,500 mg/ (Dextrose) 500 mls @ 250 mls/hr IVPB Q24H [facility]; Protocol Insulin Aspart (Novolog Vial Sliding Scale -) 1 vial SQ ACHS [facility]; Protocol Last Admin: 04/14/18 06:08 Dose: 9 units Insulin Aspart (Novolog Vial) 20 units SQ TIDAC [facility] Insulin Detemir (Levemir Vial) 50 units SQ 0700,2200 [facility] Lactobacillus Acidophilus (Bacid -) 1 tab PO DAILY [facility] Last Admin: 04/14/18 09:57 Dose: 1 tab Metformin HCl (Glucophage -) 1,000 mg PO BIDAC [facility] Last Admin: 04/14/18 06:08 Dose: 1,000 mg Ondansetron HCl (Zofran Injection) 4 mg IVPUSH Q6H PRN PRN Reason: NAUSEA Oxycodone HCl (Roxicodone -) 5 mg PO Q6H PRN PRN Reason: PAIN LEVEL 4 - 6 Oxycodone HCl (Roxicodone -) 10 mg PO Q6H PRN PRN Reason: PAIN LEVEL 7 - 10 Polyethylene Glycol (Miralax (For Daily Use) -) 17 gm PO DAILY [facility] Last Admin: 04/14/18 09:59 Dose: 17 grams - Objective Vital Signs: Vital Signs Temperature 98.5 F 04/14/18 05:37 Pulse Rate 81 04/14/18 05:37 Respiratory Rate 18 04/14/18 09:00 Blood Pressure 106/50 L 04/14/18 05:37 O2 Sat by Pulse Oximetry (%) 95 04/14/18 09:00 Constitutional: Yes: No Distress, Calm, Obese Cardiovascular: Yes: Regular Rate and Rhythm Respiratory: Yes: Regular, CTA Bilaterally Gastrointestinal: Yes: Normal Bowel Sounds, Soft Musculoskeletal: Yes: WNL Extremities: Yes: WNL Wound/Incision: Yes: Dressing Dry and Intact Neurological: Yes: Alert, Oriented Psychiatric: Yes: Alert, Oriented Labs: CBC, BMP 04/14/18 06:00 04/14/18 06:00 INR, PTT INR 1.40 (0.83-1.09) H 04/12/18 09:45 Assessment/Plan Problem List - Problems (1) Diabetic foot ulcer Code(s): E11.621 - TYPE 2 DIABETES MELLITUS WITH FOOT ULCER; L97.509 - NON- PRESSURE CHRONIC ULCER OTH PRT UNSP FOOT W UNSP SEVERITY Qualifiers: Diabetic foot ulcer location: midfoot Diabetes mellitus type: type 2 Laterality: right Non-pressure ulcer stage: with fat layer exposed Qualified Code(s): E11.621 - Type 2 diabetes mellitus with foot ulcer; L97.412 - Non-pressure chronic ulcer of right heel and midfoot with fat layer exposed (2) Diabetes mellitus Code(s): E11.9 - TYPE 2 DIABETES MELLITUS WITHOUT COMPLICATIONS Qualifiers: Diabetes mellitus type: type 2 Diabetes mellitus truck terminal manager insulin use: with truck terminal manager use Diabetes mellitus complication status: with skin complications Diabetes mellitus complication detail: with foot ulcer Qualified Code(s): E11.621 - Type 2 diabetes mellitus with foot ulcer; L97.509 - Non-pressure chronic ulcer of other part of unspecified foot with unspecified severity; Z79.4 - terminal superintendent (current) use of insulin (3) Morbid obesity Assessment/Plan: -will need outpatient weigh loss plan Code(s): E66.01 - MORBID (SEVERE) OBESITY DUE TO EXCESS CALORIES plan ct abx podiatry mri seen and result noted await for cx reports rest as per the team
[2018-04-14 11:29] VITALS: BMI 42.4
[2018-04-14] MEDS ORDERED: VANCOMYCIN 1,500 MG in DEXTROSE 5%-WATER - 500 ML IVPB SCH (22:00)
[2018-04-15] MEDS: INSULIN SLIDING SCALE (NOVOLOG) 1 VIAL SQ SCH ×4 (06:31→21:34)
[2018-04-15] MEDS: INSULIN (NOVOLOG) ASPART 100 UNITS/ML 10ML VIAL SQ SCH ×3 (06:32→17:31)
[2018-04-15] MEDS: INSULIN (LEVEMIR) 100 UNITS/ML UNITS SQ SCH ×2 (06:33→21:37)
[2018-04-15] MEDS: metFORMIN HCL 500 MG TABLET (FP) PO SCH ×2 (06:34→17:52)
[2018-04-15] MEDS: LACTOBACILLUS ACIDOPHILUS 1 TABLET PO SCH (10:31)
[2018-04-15] MEDS: ENOXAPARIN NA (PORCINE) 40 MG/0.4 ML DISP.SYRIN SQ SCH (10:31)
[2018-04-15] MEDS: DOCUSATE SODIUM 100 MG CAPSULE (FP) PO SCH ×2 (10:31→21:34)
[2018-04-15] MEDS: POLYETHYLENE GLYCOL 3350 119 GM BTL PO SCH (10:32)
[2018-04-15] MEDS: COLLAGENASE CLOSTRIDIUM HIST. 30 GRAMS TUBE TP SCH (10:34)
--- NOTE | 2018-04-15 11:45 | OP ---
Operative Note - Note: Operative Date: 04/15/18 Pre-Operative Diagnosis: abscess right foot sub met 1 Operation: I&D with debridement under sterile technique. bedside. 30cc betadine saline pressure irrigation. 05/13" iodoform packing. Findings: necrotic soft tissue with abscess Implants: / iodoform packing Post-Operative Diagnosis: Same as Pre-op Surgeon: George Marin Estimated Blood Loss (mls): 5 Instrument used (Debridements only): 18 guage needle sterile scissors Drains & Tubes with Location: 05/13" iodoform packing Operative Report Dictated: No
--- NOTE | 2018-04-15 11:46 | PN ---
Progress Note (short form) - Note Progress Note: Pt seen in bed. vss, Tmax 98.4 +improving cellulitis, +drainage, -mal odor, wbc=6.1, lnhn8i=81.6, abscess cellulitis Consented patient in [place] for bedside I&D. Patient fully understood all risks benefits and alternatives. Sterile prep of area. I&D with debridement done. Specimen to pathology. Deep wound culture. 05/13" iodoform packing put in place. No bone exposed. betadine saline irrigation under pressure of syringe accomplished. betadine dressing applied. Next dressing change to be done tomorrow by me. xray right foot.
--- NOTE | 2018-04-15 12:31 | PN ---
Progress Note, Physician Chief Complaint: Feels less pain hemodynamically stable History of Present Illness: 53 year old male who comes in with a right foot infection. H/O DM and obesity - Current Medication List Current Medications: Active Medications Acetaminophen (Tylenol -) 650 mg PO Q4H PRN PRN Reason: FEVER Last Admin: 04/14/18 08:47 Dose: 650 mg Collagenase (Santyl -) 1 applic TP DAILY [facility]; Protocol Last Admin: 04/15/18 10:34 Dose: Not Given Docusate Sodium (Colace -) 100 mg PO BID [facility] Last Admin: 04/15/18 10:31 Dose: 100 mg Enoxaparin Sodium (Lovenox -) 40 mg SQ DAILY [facility] Last Admin: 04/15/18 10:31 Dose: 40 mg Vancomycin HCl 1,500 mg/ (Dextrose) 500 mls @ 250 mls/hr IVPB Q24H [facility]; Protocol Last Admin: 04/14/18 22:55 Dose: 250 mls/hr Insulin Aspart (Novolog Vial Sliding Scale -) 1 vial SQ ACHS [facility]; Protocol Last Admin: 04/15/18 06:31 Dose: 3 units Insulin Aspart (Novolog Vial) 20 units SQ TIDAC [facility] Last Admin: 04/15/18 06:32 Dose: 20 units Insulin Detemir (Levemir Vial) 50 units SQ 0700,2200 [facility] Last Admin: 04/15/18 06:33 Dose: 50 units Lactobacillus Acidophilus (Bacid -) 1 tab PO DAILY [facility] Last Admin: 04/15/18 10:31 Dose: 1 tab Metformin HCl (Glucophage -) 1,000 mg PO BIDAC [facility] Last Admin: 04/15/18 06:34 Dose: 1,000 mg Ondansetron HCl (Zofran Injection) 4 mg IVPUSH Q6H PRN PRN Reason: NAUSEA Oxycodone HCl (Roxicodone -) 5 mg PO Q6H PRN PRN Reason: PAIN LEVEL 4 - 6 Oxycodone HCl (Roxicodone -) 10 mg PO Q6H PRN PRN Reason: PAIN LEVEL 7 - 10 Polyethylene Glycol (Miralax (For Daily Use) -) 17 gm PO DAILY [facility] Last Admin: 04/15/18 10:32 Dose: Not Given - Objective Vital Signs: Vital Signs Temperature 98.4 F 04/15/18 06:00 Pulse Rate 82 04/15/18 06:00 Respiratory Rate 20 04/15/18 06:00 Blood Pressure 146/83 04/15/18 06:00 O2 Sat by Pulse Oximetry (%) 95 04/14/18 21:00 Constitutional: Yes: No Distress, Calm, Obese (morbid) HEENT: mm moist no anemia Cardiovascular: Yes: Regular Rate and Rhythm. No: Gallop, Murmur, Rub Respiratory: Yes: Regular, CTA Bilaterally. No: Rales, Rhonchi, Wheezes Gastrointestinal: Yes: Normal Bowel Sounds, Soft. No: Distention, Tenderness Extremities: Yes: Other (R foot ulcer with purulent bloody drainage DAIRY FARMWORKER: AOx3 non focal Labs: CBC, BMP 04/14/18 06:00 04/14/18 06:00 INR, PTT INR 1.40 (0.83-1.09) H 04/12/18 09:45 Microbiology: 04/12/18 17:56 Abscess Wound Culture - Final Enterococcus Faecalis Strep Agalactiae Group B Staphylococcus Coagulase Neg Problem List - Problems (1) Diabetic foot ulcer Assessment/Plan: Infected evaluated by Podiatry consult will consider I and D mean time cont IV abx Vancomycin and Zosyn F/U Cultures reviewed will discuss with Id to narrow the spectrum. Code(s): E11.621 - TYPE 2 DIABETES MELLITUS WITH FOOT ULCER; L97.509 - NON- PRESSURE CHRONIC ULCER OTH PRT UNSP FOOT W UNSP SEVERITY Qualifiers: Diabetic foot ulcer location: midfoot Diabetes mellitus type: type 2 Laterality: right Non-pressure ulcer stage: with fat layer exposed Qualified Code(s): E11.621 - Type 2 diabetes mellitus with foot ulcer; L97.412 - Non-pressure chronic ulcer of right heel and midfoot with fat layer exposed (2) Diabetes mellitus Assessment/Plan: Poorly controlled HBA!C is high increse Levimir 50 BID (Home Basoglar 62 BID) Remeal 20 TID (Home dose 28 TID) HBA!C 10.8 Code(s): E11.9 - TYPE 2 DIABETES MELLITUS WITHOUT COMPLICATIONS Qualifiers: Diabetes mellitus type: type 2 Diabetes mellitus detention insulin use: with intermediate accountant use Diabetes mellitus complication status: with skin complications Diabetes mellitus complication detail: with foot ulcer Qualified Code(s): E11.621 - Type 2 diabetes mellitus with foot ulcer; L97.509 - Non-pressure chronic ulcer of other part of unspecified foot with unspecified severity; Z79.4 - jail (current) use of insulin (3) Morbid obesity Assessment/Plan: Chronic nutrition consult as out patient. Code(s): E66.01 - MORBID (SEVERE) OBESITY DUE TO EXCESS CALORIES
--- NOTE | 2018-04-15 13:45 | PN ---
Progress Note, Physician History of Present Illness: stable i and d done no complaints - Current Medication List Current Medications: Active Medications Acetaminophen (Tylenol -) 650 mg PO Q4H PRN PRN Reason: FEVER Last Admin: 04/14/18 08:47 Dose: 650 mg Collagenase (Santyl -) 1 applic TP DAILY [facility]; Protocol Last Admin: 04/15/18 10:34 Dose: Not Given Docusate Sodium (Colace -) 100 mg PO BID [facility] Last Admin: 04/15/18 10:31 Dose: 100 mg Enoxaparin Sodium (Lovenox -) 40 mg SQ DAILY [facility] Last Admin: 04/15/18 10:31 Dose: 40 mg Piperacillin Sod/Tazobactam (Sod 3.375 gm/ Dextrose) 50 mls @ 100 mls/hr IVPB Q8H-IV [facility]; Protocol Insulin Aspart (Novolog Vial Sliding Scale -) 1 vial SQ ACHS [facility]; Protocol Last Admin: 04/15/18 12:32 Dose: 3 units Insulin Aspart (Novolog Vial) 20 units SQ TIDAC [facility] Last Admin: 04/15/18 12:32 Dose: 20 units Insulin Detemir (Levemir Vial) 54 units SQ 0700,2200 [facility] Lactobacillus Acidophilus (Bacid -) 1 tab PO DAILY [facility] Last Admin: 04/15/18 10:31 Dose: 1 tab Metformin HCl (Glucophage -) 1,000 mg PO BIDAC [facility] Last Admin: 04/15/18 06:34 Dose: 1,000 mg Ondansetron HCl (Zofran Injection) 4 mg IVPUSH Q6H PRN PRN Reason: NAUSEA Oxycodone HCl (Roxicodone -) 5 mg PO Q6H PRN PRN Reason: PAIN LEVEL 4 - 6 Polyethylene Glycol (Miralax (For Daily Use) -) 17 gm PO DAILY [facility] Last Admin: 04/15/18 10:32 Dose: Not Given - Objective Vital Signs: Vital Signs Temperature 98.4 F 04/15/18 06:00 Pulse Rate 82 04/15/18 06:00 Respiratory Rate 20 04/15/18 06:00 Blood Pressure 146/83 04/15/18 06:00 O2 Sat by Pulse Oximetry (%) 95 04/14/18 21:00 Constitutional: Yes: No Distress, Calm Cardiovascular: Yes: Regular Rate and Rhythm Respiratory: Yes: Regular, CTA Bilaterally Gastrointestinal: Yes: Normal Bowel Sounds, Soft Musculoskeletal: Yes: WNL Extremities: Yes: Other Wound/Incision: Yes: Dressing Dry and Intact Neurological: Yes: Alert, Oriented Psychiatric: Yes: Alert, Oriented Labs: CBC, BMP 04/14/18 06:00 04/14/18 06:00 INR, PTT INR 1.40 (0.83-1.09) H 04/12/18 09:45 Assessment/Plan Problem List - Problems (1) Diabetic foot ulcer Code(s): E11.621 - TYPE 2 DIABETES MELLITUS WITH FOOT ULCER; L97.509 - NON- PRESSURE CHRONIC ULCER OTH PRT UNSP FOOT W UNSP SEVERITY Qualifiers: Diabetic foot ulcer location: midfoot Diabetes mellitus type: type 2 Laterality: right Non-pressure ulcer stage: with fat layer exposed Qualified Code(s): E11.621 - Type 2 diabetes mellitus with foot ulcer; L97.412 - Non-pressure chronic ulcer of right heel and midfoot with fat layer exposed (2) Diabetes mellitus Code(s): E11.9 - TYPE 2 DIABETES MELLITUS WITHOUT COMPLICATIONS Qualifiers: Diabetes mellitus type: type 2 Diabetes mellitus residential insulin use: with residential use Diabetes mellitus complication status: with skin complications Diabetes mellitus complication detail: with foot ulcer Qualified Code(s): E11.621 - Type 2 diabetes mellitus with foot ulcer; L97.509 - Non-pressure chronic ulcer of other part of unspecified foot with unspecified severity; Z79.4 - keno terminal operator (current) use of insulin (3) Morbid obesity Assessment/Plan: -will need outpatient weigh loss plan Code(s): E66.01 - MORBID (SEVERE) OBESITY DUE TO EXCESS CALORIES 4 osteo plan will stop vanco will start zosyn await for final cx rest as per the team mri result noted
[2018-04-15] MEDS ORDERED: DEXTROSE 5%-WATER - 50 ML IVPB ONE ×2 (15:42→17:34)
[2018-04-15] MEDS ORDERED: PIPERACILLIN/TAZOBACTAM 3.375 GM VIAL IVPB ONE ×2 (15:42→17:34)
[2018-04-15] MEDS: PIPERACILLIN/TAZOB 3.375 GM 3.375 GM in DEXTROSE 5%-WATER - 50 ML IVPB SCH ×3 (15:47→18:10)
[2018-04-16] MEDS ORDERED: PIPERACILLIN/TAZOBACTAM 3.375 GM VIAL IVPB ONE ×3 (01:13→17:17)
[2018-04-16] MEDS ORDERED: DEXTROSE 5%-WATER - 50 ML IVPB ONE ×3 (01:13→17:17)
[2018-04-16] MEDS: PIPERACILLIN/TAZOB 3.375 GM 3.375 GM in DEXTROSE 5%-WATER - 50 ML IVPB SCH ×3 (02:40→17:35)
[2018-04-16] MEDS: metFORMIN HCL 500 MG TABLET (FP) PO SCH ×2 (06:38→17:32)
[2018-04-16] MEDS: INSULIN SLIDING SCALE (NOVOLOG) 1 VIAL SQ SCH ×4 (06:39→21:33)
[2018-04-16] MEDS: INSULIN (NOVOLOG) ASPART 100 UNITS/ML 10ML VIAL SQ SCH ×3 (06:39→17:31)
[2018-04-16] MEDS: INSULIN (LEVEMIR) 100 UNITS/ML UNITS SQ SCH ×2 (06:46→21:33)
[2018-04-16 07:53] LABS: ANION GAP 10 MMOL/L (8-16); BLOOD UREA NITROGEN 9 mg/dL (7-18); CALCIUM 7.9 mg/dL (8.5-10.1); CHLORIDE 104 mmol/L (98-107); CO2 25 mmol/L (21-32); CREATININE 0.7 mg/dL (0.55-1.3); GLUCOSE,RANDOM 183 mg/dL (74-106); POTASSIUM 4.2 mmol/L (3.5-5.1); SODIUM 138 mmol/L (136-145)
--- NOTE | 2018-04-16 08:25 | PN ---
Progress Note, Physician Chief Complaint: Feels less pain hemodynamically stable History of Present Illness: 53 year old male who comes in with a right foot infection. H/O DM and obesity - Current Medication List Current Medications: Active Medications Acetaminophen (Tylenol -) 650 mg PO Q4H PRN PRN Reason: FEVER Last Admin: 04/14/18 08:47 Dose: 650 mg Collagenase (Santyl -) 1 applic TP DAILY [facility]; Protocol Last Admin: 04/15/18 10:34 Dose: Not Given Docusate Sodium (Colace -) 100 mg PO BID [facility] Last Admin: 04/15/18 21:34 Dose: 100 mg Enoxaparin Sodium (Lovenox -) 40 mg SQ DAILY [facility] Last Admin: 04/15/18 10:31 Dose: 40 mg Piperacillin Sod/Tazobactam (Sod 3.375 gm/ Dextrose) 50 mls @ 100 mls/hr IVPB Q8H-IV [facility]; Protocol Last Admin: 04/16/18 02:40 Dose: 100 mls/hr Insulin Aspart (Novolog Vial Sliding Scale -) 1 vial SQ ACHS [facility]; Protocol Last Admin: 04/16/18 06:39 Dose: 3 units Insulin Aspart (Novolog Vial) 20 units SQ TIDAC [facility] Last Admin: 04/16/18 06:39 Dose: 20 units Insulin Detemir (Levemir Vial) 54 units SQ 0700,2200 [facility] Last Admin: 04/16/18 06:46 Dose: 54 units Lactobacillus Acidophilus (Bacid -) 1 tab PO DAILY [facility] Last Admin: 04/15/18 10:31 Dose: 1 tab Metformin HCl (Glucophage -) 1,000 mg PO BIDAC [facility] Last Admin: 04/16/18 06:38 Dose: 1,000 mg Ondansetron HCl (Zofran Injection) 4 mg IVPUSH Q6H PRN PRN Reason: NAUSEA Oxycodone HCl (Roxicodone -) 5 mg PO Q6H PRN PRN Reason: PAIN LEVEL 4 - 6 Polyethylene Glycol (Miralax (For Daily Use) -) 17 gm PO DAILY [facility] Last Admin: 04/15/18 10:32 Dose: Not Given - Objective Vital Signs: Vital Signs Temperature 98.1 F 04/16/18 05:00 Pulse Rate 84 04/16/18 05:00 Respiratory Rate 18 04/16/18 05:00 Blood Pressure 128/78 04/16/18 05:00 O2 Sat by Pulse Oximetry (%) 96 04/15/18 21:00 Constitutional: Yes: No Distress, Calm, Obese (morbid) HEENT: mm moist no anemia Cardiovascular: Yes: Regular Rate and Rhythm. No: Gallop, Murmur, Rub Respiratory: Yes: Regular, CTA Bilaterally. No: Rales, Rhonchi, Wheezes Gastrointestinal: Yes: Normal Bowel Sounds, Soft. No: Distention, Tenderness Extremities: Yes: Other (R foot ulcer with purulent bloody drainage ROUGH CARPENTER: AOx3 non focal Labs: CBC, BMP 04/16/18 06:00 INR, PTT INR 1.40 (0.83-1.09) H 04/12/18 09:45 Problem List - Problems (1) Diabetic foot ulcer Assessment/Plan: Infected evaluated by Podiatry consult will consider I and D mean time cont IV abx Zosyn F/U Cultures reviewed will discuss with Id to narrow the spectrum. Code(s): E11.621 - TYPE 2 DIABETES MELLITUS WITH FOOT ULCER; L97.509 - NON- PRESSURE CHRONIC ULCER OTH PRT UNSP FOOT W UNSP SEVERITY Qualifiers: Diabetic foot ulcer location: midfoot Diabetes mellitus type: type 2 Laterality: right Non-pressure ulcer stage: with fat layer exposed Qualified Code(s): E11.621 - Type 2 diabetes mellitus with foot ulcer; L97.412 - Non-pressure chronic ulcer of right heel and midfoot with fat layer exposed (2) Diabetes mellitus Assessment/Plan: Poorly controlled HBA!C is high increse Levimir 50 BID (Home Basoglar 62 BID) Remeal 20 TID (Home dose 28 TID) HBA!C 10.8 Code(s): E11.9 - TYPE 2 DIABETES MELLITUS WITHOUT COMPLICATIONS Qualifiers: Diabetes mellitus type: type 2 Diabetes mellitus oil heaterman insulin use: with oil heaterman use Diabetes mellitus complication status: with skin complications Diabetes mellitus complication detail: with foot ulcer Qualified Code(s): E11.621 - Type 2 diabetes mellitus with foot ulcer; L97.509 - Non-pressure chronic ulcer of other part of unspecified foot with unspecified severity; Z79.4 - USP (current) use of insulin (3) Morbid obesity Assessment/Plan: Chronic nutrition consult as out patient. Code(s): E66.01 - MORBID (SEVERE) OBESITY DUE TO EXCESS CALORIES
[2018-04-16 08:44] LABS: BASO % 0.3 % (0-2.0); EOS % 3.8 % (0-4.5); HEMATOCRIT 38.4 % (35.4-49); HEMOGLOBIN 13.3 GM/dL (11.7-16.9); MCH 27.4 pg (25.7-33.7); MCHC 34.6 g/dl (32.0-35.9); MEAN CELL VOLUME 79.2 fl (80-96); MEAN PLT VOLUME 7.8 fl (7.5-11.1); MONO % 11.7 % (3.8-10.2); NEUT % 65.2 % (42.8-82.8); PLATELET COUNT 290 K/MM3 (134-434); RBC 4.85 M/mm3 (4.00-5.60); RDW 14.7 % (11.9-15.9)
[2018-04-16] MEDS ORDERED: PT OWN MED DRAWER 7, Y5N ONE (09:25)
[2018-04-16] MEDS: LACTOBACILLUS ACIDOPHILUS 1 TABLET PO SCH (09:29)
[2018-04-16] MEDS: DOCUSATE SODIUM 100 MG CAPSULE (FP) PO SCH ×2 (09:29→21:33)
[2018-04-16] MEDS: ENOXAPARIN NA (PORCINE) 40 MG/0.4 ML DISP.SYRIN SQ SCH (09:29)
[2018-04-16] MEDS: POLYETHYLENE GLYCOL 3350 119 GM BTL PO SCH (09:30)
--- NOTE | 2018-04-16 11:04 | PN ---
Progress Note, Physician History of Present Illness: Events noted. Pt is currently alert, denies pain in Rt foot, fever/chills. Tolerating antibiotics. He has no specific complaints. - Current Medication List Current Medications: Active Medications Acetaminophen (Tylenol -) 650 mg PO Q4H PRN PRN Reason: FEVER Last Admin: 04/14/18 08:47 Dose: 650 mg Collagenase (Santyl -) 1 applic TP DAILY [facility]; Protocol Last Admin: 04/15/18 10:34 Dose: Not Given Docusate Sodium (Colace -) 100 mg PO BID [facility] Last Admin: 04/16/18 09:29 Dose: 100 mg Enoxaparin Sodium (Lovenox -) 40 mg SQ DAILY [facility] Last Admin: 04/16/18 09:29 Dose: 40 mg Piperacillin Sod/Tazobactam (Sod 3.375 gm/ Dextrose) 50 mls @ 100 mls/hr IVPB Q8H-IV [facility]; Protocol Last Admin: 04/16/18 09:57 Dose: 100 mls/hr Insulin Aspart (Novolog Vial Sliding Scale -) 1 vial SQ ACHS [facility]; Protocol Last Admin: 04/16/18 06:39 Dose: 3 units Insulin Aspart (Novolog Vial) 20 units SQ TIDAC [facility] Last Admin: 04/16/18 06:39 Dose: 20 units Insulin Detemir (Levemir Vial) 54 units SQ 0700,2200 [facility] Last Admin: 04/16/18 06:46 Dose: 54 units Lactobacillus Acidophilus (Bacid -) 1 tab PO DAILY [facility] Last Admin: 04/16/18 09:29 Dose: 1 tab Metformin HCl (Glucophage -) 1,000 mg PO BIDAC [facility] Last Admin: 04/16/18 06:38 Dose: 1,000 mg Ondansetron HCl (Zofran Injection) 4 mg IVPUSH Q6H PRN PRN Reason: NAUSEA Oxycodone HCl (Roxicodone -) 5 mg PO Q6H PRN PRN Reason: PAIN LEVEL 4 - 6 Polyethylene Glycol (Miralax (For Daily Use) -) 17 gm PO DAILY [facility] Last Admin: 04/16/18 09:30 Dose: 17 grams - Objective Vital Signs: Vital Signs Temperature 98.1 F 04/16/18 05:00 Pulse Rate 84 04/16/18 05:00 Respiratory Rate 18 04/16/18 05:00 Blood Pressure 128/78 04/16/18 05:00 O2 Sat by Pulse Oximetry (%) 96 04/15/18 21:00 Constitutional: Yes: No Distress, Calm Neck: Yes: Supple Cardiovascular: Yes: Regular Rate and Rhythm Respiratory: Yes: Regular Gastrointestinal: Yes: Normal Bowel Sounds, Soft Wound/Incision: Yes: Dressing Dry and Intact Labs: CBC, BMP 04/16/18 06:00 04/16/18 06:00 INR, PTT INR 1.40 (0.83-1.09) H 04/12/18 09:45 Problem List - Problems (1) Cellulitis Code(s): L03.90 - CELLULITIS, UNSPECIFIED (2) Diabetic foot ulcer Code(s): E11.621 - TYPE 2 DIABETES MELLITUS WITH FOOT ULCER; L97.509 - NON- PRESSURE CHRONIC ULCER OTH PRT UNSP FOOT W UNSP SEVERITY Qualifiers: Diabetic foot ulcer location: midfoot Diabetes mellitus type: type 2 Laterality: right Non-pressure ulcer stage: with fat layer exposed Qualified Code(s): E11.621 - Type 2 diabetes mellitus with foot ulcer; L97.412 - Non-pressure chronic ulcer of right heel and midfoot with fat layer exposed (3) Diabetes mellitus Code(s): E11.9 - TYPE 2 DIABETES MELLITUS WITHOUT COMPLICATIONS Qualifiers: Diabetes mellitus type: type 2 Diabetes mellitus usp insulin use: with usp use Diabetes mellitus complication status: with skin complications Diabetes mellitus complication detail: with foot ulcer Qualified Code(s): E11.621 - Type 2 diabetes mellitus with foot ulcer; L97.509 - Non-pressure chronic ulcer of other part of unspecified foot with unspecified severity; Z79.4 - skilled nursing (current) use of insulin (4) Foot abscess Code(s): L02.619 - CUTANEOUS ABSCESS OF UNSPECIFIED FOOT Assessment/Plan Rt foot cellulitis Infected Diabetic foot ulcer/abscess s/p I+D DM -- wound cultures noted -- continue antibiotics -- continue wound care -- needs tight glycemic control
--- NOTE | 2018-04-16 12:59 | PN ---
Progress Note (short form) - Note Progress Note: Pt seen in bed. POD#1 vss, Tmax 98.1 +improving cellulitis, -drainage, -mal odor, -cellulitis, +resolved abscess, wbc=7.0 resolving cellulitis resolved abscess Packing pulled. Betadine irrigation. Betadine dressing applied. Abx as per ID. will follow. Discussed care at home with abx and wound care. Cultures read and appreciated. Awaiting new culture results.
[2018-04-16] MEDS: COLLAGENASE CLOSTRIDIUM HIST. 30 GRAMS TUBE TP SCH (13:38)
[2018-04-17] MEDS ORDERED: DEXTROSE 5%-WATER - 50 ML IVPB ONE ×3 (01:06→16:29)
[2018-04-17] MEDS ORDERED: PIPERACILLIN/TAZOBACTAM 3.375 GM VIAL IVPB ONE ×3 (01:06→16:29)
[2018-04-17] MEDS: PIPERACILLIN/TAZOB 3.375 GM 3.375 GM in DEXTROSE 5%-WATER - 50 ML IVPB SCH ×3 (01:35→17:13)
[2018-04-17] MEDS: INSULIN SLIDING SCALE (NOVOLOG) 1 VIAL SQ SCH ×4 (06:19→22:47)
[2018-04-17] MEDS: INSULIN (LEVEMIR) 100 UNITS/ML UNITS SQ SCH ×2 (06:19→22:45)
[2018-04-17] MEDS: INSULIN (NOVOLOG) ASPART 100 UNITS/ML 10ML VIAL SQ SCH ×3 (06:19→16:30)
[2018-04-17] MEDS: metFORMIN HCL 500 MG TABLET (FP) PO SCH ×2 (06:19→16:51)
[2018-04-17 07:23] LABS: BASO % 0.6 % (0-2.0); EOS % 3.5 % (0-4.5); HEMATOCRIT 42.2 % (35.4-49); HEMOGLOBIN 13.2 GM/dL (11.7-16.9); LYMPH % 23.8 % (8-40); MCH 25.5 pg (25.7-33.7); MCHC 31.4 g/dl (32.0-35.9); MEAN CELL VOLUME 81.1 fl (80-96); MEAN PLT VOLUME 7.6 fl (7.5-11.1); MONO % 11.3 % (3.8-10.2); NEUT % 60.8 % (42.8-82.8); PLATELET COUNT 314 K/MM3 (134-434); RDW 15.1 % (11.9-15.9); WHITE BLOOD COUNT 6.8 K/mm3 (4.0-10.0)
[2018-04-17 08:06] LABS: ANION GAP 11 MMOL/L (8-16); BLOOD UREA NITROGEN 11 mg/dL (7-18); CALCIUM 8.2 mg/dL (8.5-10.1); CHLORIDE 99 mmol/L (98-107); CO2 26 mmol/L (21-32); CREATININE 0.9 mg/dL (0.55-1.3); GLUCOSE,RANDOM 177 mg/dL (74-106); POTASSIUM 4.1 mmol/L (3.5-5.1); SODIUM 137 mmol/L (136-145)
--- NOTE | 2018-04-17 08:41 | PN ---
Progress Note, Physician Chief Complaint: Feels less pain hemodynamically stable History of Present Illness: 53 year old male who comes in with a right foot infection. H/O DM and obesity - Current Medication List Current Medications: Active Medications Acetaminophen (Tylenol -) 650 mg PO Q4H PRN PRN Reason: FEVER Last Admin: 04/14/18 08:47 Dose: 650 mg Collagenase (Santyl -) 1 applic TP DAILY [facility]; Protocol Last Admin: 04/16/18 13:38 Dose: Not Given Docusate Sodium (Colace -) 100 mg PO BID [facility] Last Admin: 04/16/18 21:33 Dose: 100 mg Enoxaparin Sodium (Lovenox -) 40 mg SQ DAILY [facility] Last Admin: 04/16/18 09:29 Dose: 40 mg Piperacillin Sod/Tazobactam (Sod 3.375 gm/ Dextrose) 50 mls @ 100 mls/hr IVPB Q8H-IV [facility]; Protocol Last Admin: 04/17/18 01:35 Dose: 100 mls/hr Insulin Aspart (Novolog Vial Sliding Scale -) 1 vial SQ ACHS [facility]; Protocol Last Admin: 04/17/18 06:19 Dose: 3 units Insulin Aspart (Novolog Vial) 15 units SQ TIDAC [facility] Last Admin: 04/17/18 06:19 Dose: Not Given Insulin Detemir (Levemir Vial) 54 units SQ 0700,2200 [facility] Last Admin: 04/17/18 06:19 Dose: 54 units Lactobacillus Acidophilus (Bacid -) 1 tab PO DAILY [facility] Last Admin: 04/16/18 09:29 Dose: 1 tab Metformin HCl (Glucophage -) 1,000 mg PO BIDAC [facility] Last Admin: 04/17/18 06:19 Dose: 1,000 mg Ondansetron HCl (Zofran Injection) 4 mg IVPUSH Q6H PRN PRN Reason: NAUSEA Oxycodone HCl (Roxicodone -) 5 mg PO Q6H PRN PRN Reason: PAIN LEVEL 4 - 6 Polyethylene Glycol (Miralax (For Daily Use) -) 17 gm PO DAILY [facility] Last Admin: 04/16/18 09:30 Dose: 17 grams - Objective Vital Signs: Vital Signs Temperature 98.2 F 04/17/18 05:00 Pulse Rate 75 04/17/18 05:00 Respiratory Rate 18 04/17/18 05:00 Blood Pressure 122/56 L 04/17/18 05:00 O2 Sat by Pulse Oximetry (%) 97 04/16/18 21:00 Constitutional: Yes: No Distress, Calm, Obese (morbid) HEENT: mm moist no anemia Cardiovascular: Yes: Regular Rate and Rhythm. No: Gallop, Murmur, Rub Respiratory: Yes: Regular, CTA Bilaterally. No: Rales, Rhonchi, Wheezes Gastrointestinal: Yes: Normal Bowel Sounds, Soft. No: Distention, Tenderness Extremities: Yes: Other (R foot ulcer with purulent bloody drainage LEGAL EXECUTIVE ASSISTANT: AOx3 non focal Labs: CBC, BMP 04/17/18 06:00 04/17/18 06:00 INR, PTT INR 1.40 (0.83-1.09) H 04/12/18 09:45 Problem List - Problems (1) Diabetic foot ulcer Assessment/Plan: Infected evaluated by Podiatry consult will consider I and D mean time cont IV abx Zosyn f/u Rpt Culture F/U ESR and CRP Code(s): E11.621 - TYPE 2 DIABETES MELLITUS WITH FOOT ULCER; L97.509 - NON- PRESSURE CHRONIC ULCER OTH PRT UNSP FOOT W UNSP SEVERITY Qualifiers: Diabetic foot ulcer location: midfoot Diabetes mellitus type: type 2 Laterality: right Non-pressure ulcer stage: with fat layer exposed Qualified Code(s): E11.621 - Type 2 diabetes mellitus with foot ulcer; L97.412 - Non-pressure chronic ulcer of right heel and midfoot with fat layer exposed (2) Diabetes mellitus Assessment/Plan: Poorly controlled HBA1C is high increase Levimir 58 BID Pre Meal Lisprp 18 TID with correction scale (Home Basoglar 62 BID Pre meal, Home dose 28 TID) HBA1C 10.8 Code(s): E11.9 - TYPE 2 DIABETES MELLITUS WITHOUT COMPLICATIONS Qualifiers: Diabetes mellitus type: type 2 Diabetes mellitus moth exterminator insulin use: with penitentiary use Diabetes mellitus complication status: with skin complications Diabetes mellitus complication detail: with foot ulcer Qualified Code(s): E11.621 - Type 2 diabetes mellitus with foot ulcer; L97.509 - Non-pressure chronic ulcer of other part of unspecified foot with unspecified severity; Z79.4 - intermediate designer (current) use of insulin (3) Morbid obesity Assessment/Plan: Chronic nutrition consult as out patient. Code(s): E66.01 - MORBID (SEVERE) OBESITY DUE TO EXCESS CALORIES
[2018-04-17] MEDS: COLLAGENASE CLOSTRIDIUM HIST. 30 GRAMS TUBE TP SCH (10:00)
[2018-04-17] MEDS: ENOXAPARIN NA (PORCINE) 40 MG/0.4 ML DISP.SYRIN SQ SCH (10:00)
[2018-04-17] MEDS: POLYETHYLENE GLYCOL 3350 119 GM BTL PO SCH (10:00)
[2018-04-17] MEDS: LACTOBACILLUS ACIDOPHILUS 1 TABLET PO SCH (10:00)
[2018-04-17] MEDS: DOCUSATE SODIUM 100 MG CAPSULE (FP) PO SCH ×2 (10:00→22:45)
--- NOTE | 2018-04-17 11:29 | PN ---
Progress Note, Physician History of Present Illness: Pt doing well. Denies pain in Rt foot. Remains afebrile, without new complaints. - Current Medication List Current Medications: Active Medications Acetaminophen (Tylenol -) 650 mg PO Q4H PRN PRN Reason: FEVER Last Admin: 04/14/18 08:47 Dose: 650 mg Collagenase (Santyl -) 1 applic TP DAILY [facility]; Protocol Last Admin: 04/17/18 10:00 Dose: 1 applic Docusate Sodium (Colace -) 100 mg PO BID [facility] Last Admin: 04/17/18 10:00 Dose: 100 mg Enoxaparin Sodium (Lovenox -) 40 mg SQ DAILY [facility] Last Admin: 04/17/18 10:00 Dose: 40 mg Piperacillin Sod/Tazobactam (Sod 3.375 gm/ Dextrose) 50 mls @ 100 mls/hr IVPB Q8H-IV [facility]; Protocol Last Admin: 04/17/18 10:00 Dose: 100 mls/hr Insulin Aspart (Novolog Vial Sliding Scale -) 1 vial SQ ACHS [facility]; Protocol Last Admin: 04/17/18 06:19 Dose: 3 units Insulin Aspart (Novolog Vial) 15 units SQ TIDAC [facility] Last Admin: 04/17/18 06:19 Dose: Not Given Insulin Detemir (Levemir Vial) 58 units SQ 0700,2200 [facility] Lactobacillus Acidophilus (Bacid -) 1 tab PO DAILY [facility] Last Admin: 04/17/18 10:00 Dose: 1 tab Metformin HCl (Glucophage -) 1,000 mg PO BIDAC [facility] Last Admin: 04/17/18 06:19 Dose: 1,000 mg Ondansetron HCl (Zofran Injection) 4 mg IVPUSH Q6H PRN PRN Reason: NAUSEA Polyethylene Glycol (Miralax (For Daily Use) -) 17 gm PO DAILY [facility] Last Admin: 04/17/18 10:00 Dose: 17 grams - Objective Vital Signs: Vital Signs Temperature 98.2 F 04/17/18 05:00 Pulse Rate 75 04/17/18 05:00 Respiratory Rate 18 04/17/18 05:00 Blood Pressure 122/56 L 04/17/18 05:00 O2 Sat by Pulse Oximetry (%) 97 04/16/18 21:00 Constitutional: Yes: No Distress, Calm Cardiovascular: Yes: Regular Rate and Rhythm Respiratory: Yes: Regular Gastrointestinal: Yes: Normal Bowel Sounds, Soft Extremities: Yes: Erythema Wound/Incision: Yes: Other (Rt foot edema/warmth +, Wound dressed) Labs: CBC, BMP 04/17/18 06:00 04/17/18 06:00 INR, PTT INR 1.40 (0.83-1.09) H 04/12/18 09:45 Problem List - Problems (1) Cellulitis Code(s): L03.90 - CELLULITIS, UNSPECIFIED (2) Diabetic foot ulcer Code(s): E11.621 - TYPE 2 DIABETES MELLITUS WITH FOOT ULCER; L97.509 - NON- PRESSURE CHRONIC ULCER OTH PRT UNSP FOOT W UNSP SEVERITY Qualifiers: Diabetic foot ulcer location: midfoot Diabetes mellitus type: type 2 Laterality: right Non-pressure ulcer stage: with fat layer exposed Qualified Code(s): E11.621 - Type 2 diabetes mellitus with foot ulcer; L97.412 - Non-pressure chronic ulcer of right heel and midfoot with fat layer exposed (3) Diabetes mellitus Code(s): E11.9 - TYPE 2 DIABETES MELLITUS WITHOUT COMPLICATIONS Qualifiers: Diabetes mellitus type: type 2 Diabetes mellitus care home insulin use: with care home use Diabetes mellitus complication status: with skin complications Diabetes mellitus complication detail: with foot ulcer Qualified Code(s): E11.621 - Type 2 diabetes mellitus with foot ulcer; L97.509 - Non-pressure chronic ulcer of other part of unspecified foot with unspecified severity; Z79.4 - retirement (current) use of insulin (4) Foot abscess Code(s): L02.619 - CUTANEOUS ABSCESS OF UNSPECIFIED FOOT Assessment/Plan Rt foot cellulitis Infected Diabetic foot ulcer/abscess s/p I+D POD#2 DM -- continue current antibiotics -- repeat esr, crp -- continue wound care -- Podiatry following
[2018-04-17] MEDS ORDERED: INSULIN (NOVOLOG) ASPART 100 UNITS/ML 10ML VIAL ONE (21:43)
[2018-04-18] MEDS ORDERED: DEXTROSE 5%-WATER - 50 ML IVPB ONE ×2 (00:58→08:24)
[2018-04-18] MEDS ORDERED: PIPERACILLIN/TAZOBACTAM 3.375 GM VIAL IVPB ONE ×2 (00:58→08:24)
[2018-04-18] MEDS: PIPERACILLIN/TAZOB 3.375 GM 3.375 GM in DEXTROSE 5%-WATER - 50 ML IVPB SCH ×2 (01:56→10:07)
[2018-04-18] MEDS: metFORMIN HCL 500 MG TABLET (FP) PO SCH ×2 (06:04→16:48)
[2018-04-18] MEDS: INSULIN (LEVEMIR) 100 UNITS/ML UNITS SQ SCH ×2 (06:04→21:19)
[2018-04-18] MEDS: INSULIN SLIDING SCALE (NOVOLOG) 1 VIAL SQ SCH ×4 (06:04→21:20)
[2018-04-18] MEDS: INSULIN (NOVOLOG) ASPART 100 UNITS/ML 10ML VIAL SQ SCH ×3 (06:05→16:49)
[2018-04-18 06:27] LABS: EOS % 4.7 % (0-4.5); HEMATOCRIT 40.4 % (35.4-49); HEMOGLOBIN 12.8 GM/dL (11.7-16.9); MCH 25.5 pg (25.7-33.7); MCHC 31.7 g/dl (32.0-35.9); MEAN CELL VOLUME 80.2 fl (80-96); MEAN PLT VOLUME 7.6 fl (7.5-11.1); MONO % 11.9 % (3.8-10.2); NEUT % 56.4 % (42.8-82.8); PLATELET COUNT 299 K/MM3 (134-434); RBC 5.04 M/mm3 (4.00-5.60); RDW 14.8 % (11.9-15.9); WHITE BLOOD COUNT 6.9 K/mm3 (4.0-10.0)
[2018-04-18 06:50] LABS: BLOOD UREA NITROGEN 13 mg/dL (7-18); CHLORIDE 103 mmol/L (98-107); CO2 28 mmol/L (21-32); CREATININE 0.9 mg/dL (0.55-1.3); GLUCOSE,RANDOM 170 mg/dL (74-106); POTASSIUM 4.6 mmol/L (3.5-5.1); SODIUM 137 mmol/L (136-145)
[2018-04-18 06:51] LABS: ANION GAP 6 MMOL/L (8-16); CALCIUM 8.1 mg/dL (8.5-10.1)
[2018-04-18] MEDS: LACTOBACILLUS ACIDOPHILUS 1 TABLET PO SCH (10:07)
[2018-04-18] MEDS: ENOXAPARIN NA (PORCINE) 40 MG/0.4 ML DISP.SYRIN SQ SCH (10:07)
[2018-04-18] MEDS: DOCUSATE SODIUM 100 MG CAPSULE (FP) PO SCH ×2 (10:08→21:20)
[2018-04-18] MEDS: POLYETHYLENE GLYCOL 3350 119 GM BTL PO SCH (10:08)
[2018-04-18] MEDS: COLLAGENASE CLOSTRIDIUM HIST. 30 GRAMS TUBE TP SCH (10:09)
--- NOTE | 2018-04-18 13:51 | PN ---
Progress Note, Physician History of Present Illness: patient stable no issues - Current Medication List Current Medications: Active Medications Acetaminophen (Tylenol -) 650 mg PO Q4H PRN PRN Reason: FEVER Last Admin: 04/14/18 08:47 Dose: 650 mg Collagenase (Santyl -) 1 applic TP DAILY [facility]; Protocol Last Admin: 04/18/18 10:09 Dose: 1 applic Docusate Sodium (Colace -) 100 mg PO BID [facility] Last Admin: 04/18/18 10:08 Dose: 100 mg Enoxaparin Sodium (Lovenox -) 40 mg SQ DAILY [facility] Last Admin: 04/18/18 10:07 Dose: 40 mg Insulin Aspart (Novolog Vial Sliding Scale -) 1 vial SQ ACHS [facility]; Protocol Last Admin: 04/18/18 11:42 Dose: 3 units Insulin Aspart (Novolog Vial) 18 units SQ TIDAC [facility] Last Admin: 04/18/18 11:42 Dose: 18 units Insulin Detemir (Levemir Vial) 58 units SQ 0700,2200 [facility] Last Admin: 04/18/18 06:04 Dose: 58 units Lactobacillus Acidophilus (Bacid -) 1 tab PO DAILY [facility] Last Admin: 04/18/18 10:07 Dose: 1 tab Metformin HCl (Glucophage -) 1,000 mg PO BIDAC [facility] Last Admin: 04/18/18 06:04 Dose: 1,000 mg Ondansetron HCl (Zofran Injection) 4 mg IVPUSH Q6H PRN PRN Reason: NAUSEA Polyethylene Glycol (Miralax (For Daily Use) -) 17 gm PO DAILY [facility] Last Admin: 04/18/18 10:08 Dose: Not Given - Objective Vital Signs: Vital Signs Temperature 97.4 F L 04/18/18 10:05 Pulse Rate 84 04/18/18 10:05 Respiratory Rate 20 04/18/18 10:05 Blood Pressure 140/84 04/18/18 10:05 O2 Sat by Pulse Oximetry (%) 97 04/18/18 09:00 Constitutional: Yes: No Distress, Calm Cardiovascular: Yes: Regular Rate and Rhythm Respiratory: Yes: Regular, CTA Bilaterally Gastrointestinal: Yes: Normal Bowel Sounds, Soft Musculoskeletal: Yes: WNL Extremities: Yes: Other Wound/Incision: Yes: Dressing Dry and Intact Neurological: Yes: Alert, Oriented Psychiatric: Yes: Alert, Oriented Labs: CBC, BMP 04/18/18 06:00 04/18/18 06:00 INR, PTT INR 1.40 (0.83-1.09) H 04/12/18 09:45 Assessment/Plan Problem List - Problems (1) Diabetic foot ulcer Code(s): E11.621 - TYPE 2 DIABETES MELLITUS WITH FOOT ULCER; L97.509 - NON- PRESSURE CHRONIC ULCER OTH PRT UNSP FOOT W UNSP SEVERITY Qualifiers: Diabetic foot ulcer location: midfoot Diabetes mellitus type: type 2 Laterality: right Non-pressure ulcer stage: with fat layer exposed Qualified Code(s): E11.621 - Type 2 diabetes mellitus with foot ulcer; L97.412 - Non-pressure chronic ulcer of right heel and midfoot with fat layer exposed (2) Diabetes mellitus Code(s): E11.9 - TYPE 2 DIABETES MELLITUS WITHOUT COMPLICATIONS Qualifiers: Diabetes mellitus type: type 2 Diabetes mellitus fci insulin use: with fci use Diabetes mellitus complication status: with skin complications Diabetes mellitus complication detail: with foot ulcer Qualified Code(s): E11.621 - Type 2 diabetes mellitus with foot ulcer; L97.509 - Non-pressure chronic ulcer of other part of unspecified foot with unspecified severity; Z79.4 - predatory animal exterminator (current) use of insulin (3) Morbid obesity Assessment/Plan: -will need outpatient weigh loss plan Code(s): E66.01 - MORBID (SEVERE) OBESITY DUE TO EXCESS CALORIES 4 osteo plan will change abx to vanco patient will need it for 3 more weeks wound care rest as per the podiatry team and primary care
[2018-04-18] MEDS ORDERED: VANCOMYCIN 1,250 MG in DEXTROSE 5%-WATER - 250 ML IVPB SCH (14:15)
--- NOTE | 2018-04-18 14:54 | PN ---
Progress Note (short form) - Note Progress Note: Pt seen in bed. POD#3 vss, Tmax 97.9 +resolved cellulitis, -drainage, -mal odor, -tenderness, -cellulitis, + resolved abscess, wbc=6.9, esr=32, crp 2.3 cellulitis resolved resolved abscess Betadine irrigation. Betadine dressing applied. Abx as per ID. will follow. Discussed care at home with abx and wound care. will discuss with ID.
--- NOTE | 2018-04-18 15:33 | PN ---
Teaching Attending Note Name of Resident: Carmine Henderson ATTENDING PHYSICIAN STATEMENT I saw and evaluated the patient. I reviewed the resident's note and discussed the case with the resident. I agree with the resident's findings and plan as documented. SUBJECTIVE: Patient has no complaints. OBJECTIVE: Vital Signs Period Temp Pulse Resp BP Sys/Vasquez Pulse Ox Last 24 Hr 97.3 F-98.1 F 78-87 20-20 113-140/67-89 97-97 HEART: S1S2, RRR LUNGS: Clear ABDOMEN: Obese, soft, non-tender, non-distended, normal BS EXTREMITIES: No edema, right foot wrapped Laboratory Results - last 24 hr 04/17/18 04/17/18 04/18/18 16:11 22:46 05:52 WBC RBC Hgb Hct MCV MCH MCHC RDW Plt Count MPV Absolute Neuts (auto) Neutrophils % Lymphocytes % Monocytes % Eosinophils % Basophils % Nucleated RBC % ESR Sodium Potassium Chloride Carbon Dioxide Anion Gap BUN Creatinine Creat Clearance w eGFR POC Glucometer 197 203 173 Random Glucose Calcium C-Reactive Protein 04/18/18 04/18/18 04/18/18 06:00 06:00 06:00 WBC 6.9 RBC 5.04 Hgb 12.8 Hct 40.4 MCV 80.2 MCH 25.5 L MCHC 31.7 L RDW 14.8 Plt Count 299 MPV 7.6 Absolute Neuts (auto) 3.9 Neutrophils % 56.4 Lymphocytes % 26.0 Monocytes % 11.9 H Eosinophils % 4.7 H Basophils % 1.0 Nucleated RBC % 0 ESR 32 H Sodium 137 Potassium 4.6 Chloride 103 Carbon Dioxide 28 Anion Gap 6 L BUN 13 Creatinine 0.9 Creat Clearance w eGFR > 60 POC Glucometer Random Glucose 170 H Calcium 8.1 L C-Reactive Protein 2.3 H 04/18/18 11:39 WBC RBC Hgb Hct MCV MCH MCHC RDW Plt Count MPV Absolute Neuts (auto) Neutrophils % Lymphocytes % Monocytes % Eosinophils % Basophils % Nucleated RBC % ESR Sodium Potassium Chloride Carbon Dioxide Anion Gap BUN Creatinine Creat Clearance w eGFR POC Glucometer 179 Random Glucose Calcium C-Reactive Protein Current Medications Generic Name Dose Route Start Last Admin Trade Name Freq PRN Reason Stop Dose Admin Acetaminophen 650 mg 04/12/18 14:16 04/14/18 08:47 Tylenol - PO 650 mg Q4H PRN Administration FEVER Collagenase 1 applic 12/05/18 10:00 04/18/18 10:09 Santyl - TP 1 applic DAILY ESTELA Administration Protocol Docusate Sodium 100 mg 04/12/18 22:00 04/18/18 10:08 Colace - PO 100 mg BID ESTELA Administration Enoxaparin Sodium 40 mg 04/13/18 10:00 04/18/18 10:07 Lovenox - SQ 40 mg DAILY ESTELA Administration Vancomycin HCl 1,250 mg/ 250 mls @ 166.667 mls/hr 04/18/18 15:00 Sodium Chloride IVPB Q24H ESTELA Protocol Insulin Aspart 1 vial 04/12/18 16:30 04/18/18 11:42 Novolog Vial Sliding Scale - SQ 3 units ACHS ESTELA Administration Protocol Insulin Aspart 18 units 04/17/18 16:30 04/18/18 11:42 Novolog Vial SQ 18 units TIDAC ESTELA Administration Insulin Detemir 58 units 04/17/18 08:41 04/18/18 06:04 Levemir Vial SQ 58 units 0700,2200 ESTELA Administration Lactobacillus Acidophilus 1 tab 04/12/18 14:30 04/18/18 10:07 Bacid - PO 1 tab DAILY ESTELA Administration Metformin HCl 1,000 mg 04/12/18 16:30 04/18/18 06:04 Glucophage - PO 1,000 mg BIDAC ESTELA Administration Ondansetron HCl 4 mg 04/12/18 14:16 Zofran Injection IVPUSH Q6H PRN NAUSEA Polyethylene Glycol 17 gm 04/13/18 10:00 04/18/18 10:08 Miralax (For Daily Use) - PO Not Given DAILY ESTELA ASSESSMENT AND PLAN: This is a 53 year old man with a history of obesity, type 2 DM who presented to the ED with pain in his right foot with bloody drainage. 1. Diabetic ulcer with abscess of right foot - s/p I&D and debridement 04/15 - Culture growing group B Strep, E. faecalis, Prevotella - Continue Vancomycin x 3 weeks - Continue wound care with Santyl 2. Type 2 DM - Continue metformin, Levemir, pre-meal Novolog with correction scale 3. Morbid obesity with BMI 42.4
--- NOTE | 2018-04-18 17:17 | PN ---
Physical Exam: SUBJECTIVE: Patient seen and examined at bedside. No overnight events. No new complaints. Foot pain is minimal. Feels well overall. Denies CP,ISAACS, SOB, abdominal pain, nausea or vomiting. OBJECTIVE: Vital Signs Period Temp Pulse Resp BP Sys/Vasquez Pulse Ox Last 24 Hr 97.3 F-98.1 F 78-87 20-20 113-140/67-89 97-97 GENERAL: AAOx3, NAD ENT: moist mucous membranes. LUNGS: CTAB, no wheezes, no crackles, no accessory muscle use. HEART: RRR, S1, S2 without murmur, rub or gallop. ABDOMEN: Soft, obese, nontender, nondistended, normoactive bowel sounds EXTREMITIES: 2+ pulses, warm, well-perfused, no edema. NEUROLOGICAL: Cranial nerves II through XII grossly intact. Normal speech, gait not observed. PSYCH: Normal mood, normal affect. SKIN:right foot wrapped; appears C/D/I Laboratory Results - last 24 hr 04/17/18 04/18/18 04/18/18 22:46 05:52 06:00 WBC 6.9 RBC 5.04 Hgb 12.8 Hct 40.4 MCV 80.2 MCH 25.5 L MCHC 31.7 L RDW 14.8 Plt Count 299 MPV 7.6 Absolute Neuts (auto) 3.9 Neutrophils % 56.4 Lymphocytes % 26.0 Monocytes % 11.9 H Eosinophils % 4.7 H Basophils % 1.0 Nucleated RBC % 0 ESR Sodium Potassium Chloride Carbon Dioxide Anion Gap BUN Creatinine Creat Clearance w eGFR POC Glucometer 203 173 Random Glucose Calcium C-Reactive Protein 04/18/18 04/18/18 04/18/18 06:00 06:00 11:39 WBC RBC Hgb Hct MCV MCH MCHC RDW Plt Count MPV Absolute Neuts (auto) Neutrophils % Lymphocytes % Monocytes % Eosinophils % Basophils % Nucleated RBC % ESR 32 H Sodium 137 Potassium 4.6 Chloride 103 Carbon Dioxide 28 Anion Gap 6 L BUN 13 Creatinine 0.9 Creat Clearance w eGFR > 60 POC Glucometer 179 Random Glucose 170 H Calcium 8.1 L C-Reactive Protein 2.3 H 04/18/18 16:46 WBC RBC Hgb Hct MCV MCH MCHC RDW Plt Count MPV Absolute Neuts (auto) Neutrophils % Lymphocytes % Monocytes % Eosinophils % Basophils % Nucleated RBC % ESR Sodium Potassium Chloride Carbon Dioxide Anion Gap BUN Creatinine Creat Clearance w eGFR POC Glucometer 173 Random Glucose Calcium C-Reactive Protein Active Medications Generic Name Dose Route Start Last Admin Trade Name Gino PRN Reason Stop Dose Admin Acetaminophen 650 mg 04/12/18 14:16 04/14/18 08:47 Tylenol - PO 650 mg Q4H PRN Administration FEVER Collagenase 1 applic 04/13/18 10:00 04/18/18 10:09 Santyl - TP 1 applic DAILY ESTELA Administration Protocol Docusate Sodium 100 mg 04/12/18 22:00 04/18/18 10:08 Colace - PO 100 mg BID ESTELA Administration Enoxaparin Sodium 40 mg 04/13/18 10:00 04/18/18 10:07 Lovenox - SQ 40 mg DAILY ESTELA Administration Vancomycin HCl 1,250 mg/ 250 mls @ 166.667 mls/hr 04/18/18 15:00 Sodium Chloride IVPB Q24H ESTELA Protocol Insulin Aspart 1 vial 04/12/18 16:30 04/18/18 16:48 Novolog Vial Sliding Scale - SQ 3 units ACHS ESTELA Administration Protocol Insulin Aspart 18 units 04/17/18 16:30 04/18/18 16:49 Novolog Vial SQ 18 units TIDAC ESTELA Administration Insulin Detemir 58 units 04/17/18 08:41 04/18/18 06:04 Levemir Vial SQ 58 units 0700,2200 ESTELA Administration Lactobacillus Acidophilus 1 tab 04/12/18 14:30 04/18/18 10:07 Bacid - PO 1 tab DAILY ESTELA Administration Metformin HCl 1,000 mg 04/12/18 16:30 04/18/18 16:48 Glucophage - PO 1,000 mg BIDAC ESTELA Administration Ondansetron HCl 4 mg 04/12/18 14:16 Zofran Injection IVPUSH Q6H PRN NAUSEA Polyethylene Glycol 17 gm 04/13/18 10:00 04/18/18 10:08 Miralax (For Daily Use) - PO Not Given DAILY [facility] ASSESSMENT/PLAN: 53 year old man with a history of obesity, type 2 DM who presented to the ED with pain in his right foot with bloody drainage. Problem List - Problems (1) Diabetic foot ulcer Assessment/Plan: * s/p I&D and debridement 04/15 * Culture growing group B Strep, E. faecalis, Prevotella * Continue Vancomycin x 3 weeks * Wound care as per podiatry. * Will need PICC and return to [facility] for daily infusion. (2) Diabetes mellitus Assessment/Plan: * ADA diet. * Metformin, * Levemir * pre-meal novlog 18 units. * ISS ACHS. (3) Morbid obesity Assessment/Plan: BMI 42.4 * Counseled on the importance of losing weight * Health impact that comes with being overweight explained. (4) DVT prophylaxis Assessment/Plan: Lovenox SQ 40 daily Visit type - Emergency Visit Emergency Visit: Yes ED Registration Date: 04/12/18 Care time: The patient presented to the Emergency Department on the above date and was hospitalized for further evaluation of their emergent condition. - New Patient This patient is new to me today: Yes Date on this admission: 04/20/18 - Critical Care Critical Care patient: No
[2018-04-18] MEDS: VANCOMYCIN 1,250 MG in SODIUM CHLORIDE 250 ML IVPB SCH (17:53)
[2018-04-18] MEDS ORDERED: INSULIN (NOVOLOG) ASPART 100 UNITS/ML 10ML VIAL ONE (18:44)
[2018-04-18] MEDS ORDERED: INSULIN (LEVEMIR) 100 UNITS/ML UNITS SQ ONE (18:44)
[2018-04-19] MEDS: metFORMIN HCL 500 MG TABLET (FP) PO SCH ×2 (06:14→17:35)
[2018-04-19] MEDS: INSULIN (LEVEMIR) 100 UNITS/ML UNITS SQ SCH ×2 (06:19→22:19)
[2018-04-19] MEDS: INSULIN SLIDING SCALE (NOVOLOG) 1 VIAL SQ SCH ×4 (06:19→22:20)
[2018-04-19 07:08] LABS: BASO % 0.5 % (0-2.0); EOS % 4.4 % (0-4.5); HEMATOCRIT 41.5 % (35.4-49); HEMOGLOBIN 13.4 GM/dL (11.7-16.9); LYMPH % 23.6 % (8-40); MCH 25.9 pg (25.7-33.7); MCHC 32.2 g/dl (32.0-35.9); MEAN CELL VOLUME 80.3 fl (80-96); MEAN PLT VOLUME 7.7 fl (7.5-11.1); MONO % 9.8 % (3.8-10.2); NEUT % 61.7 % (42.8-82.8); PLATELET COUNT 299 K/MM3 (134-434); RBC 5.18 M/mm3 (4.00-5.60); RDW 14.6 % (11.9-15.9)
[2018-04-19 07:32] LABS: ALBUMIN 2.6 g/dl (3.4-5.0); ALK PHOS 98 U/L (45-117); ANION GAP 7 MMOL/L (8-16); BILIRUBIN,TOTAL 0.3 mg/dL (0.2-1); BLOOD UREA NITROGEN 13 mg/dL (7-18); CALCIUM 8.1 mg/dL (8.5-10.1); CHLORIDE 104 mmol/L (98-107); CO2 25 mmol/L (21-32); CREATININE 0.7 mg/dL (0.55-1.3); GLUCOSE,RANDOM 173 mg/dL (74-106); POTASSIUM 4.3 mmol/L (3.5-5.1); SGOT/AST 23 U/L (15-37); SGPT/ALT 34 U/L (13-61); SODIUM 137 mmol/L (136-145)
[2018-04-19] MEDS ORDERED: INSULIN (NOVOLOG) ASPART 100 UNITS/ML 10ML VIAL ONE (07:52)
[2018-04-19] MEDS: LACTOBACILLUS ACIDOPHILUS 1 TABLET PO SCH (09:46)
[2018-04-19] MEDS: ENOXAPARIN NA (PORCINE) 40 MG/0.4 ML DISP.SYRIN SQ SCH (09:46)
[2018-04-19] MEDS: DOCUSATE SODIUM 100 MG CAPSULE (FP) PO SCH ×2 (09:46→22:19)
[2018-04-19] MEDS: INSULIN (NOVOLOG) ASPART 100 UNITS/ML 10ML VIAL SQ SCH ×3 (10:02→18:02)
--- NOTE | 2018-04-19 11:50 | PN ---
Teaching Attending Note Name of Resident: Carmine Henderson ATTENDING PHYSICIAN STATEMENT I saw and evaluated the patient. I reviewed the resident's note and discussed the case with the resident. I agree with the resident's findings and plan as documented. SUBJECTIVE: Patient has no complaints. OBJECTIVE: Vital Signs Period Temp Pulse Resp BP Sys/Vasquez Pulse Ox Last 24 Hr 97.8 F-98.2 F 78-87 18-20 115-136/69-84 98-98 HEART: S1S2, RRR LUNGS: Clear ABDOMEN: Obese, soft, non-tender, non-distended, normal BS EXTREMITIES: No edema, right foot wrapped Laboratory Results - last 24 hr 04/18/18 04/18/18 04/18/18 06:00 11:39 16:46 WBC RBC Hgb Hct MCV MCH MCHC RDW Plt Count MPV Absolute Neuts (auto) Neutrophils % Lymphocytes % Monocytes % Eosinophils % Basophils % Nucleated RBC % Sodium Potassium Chloride Carbon Dioxide Anion Gap BUN Creatinine Creat Clearance w eGFR POC Glucometer 179 173 Random Glucose Calcium Total Bilirubin AST ALT Alkaline Phosphatase C-Reactive Protein 2.3 H Total Protein Albumin 04/18/18 04/19/18 04/19/18 21:17 06:00 06:00 WBC 7.0 RBC 5.18 Hgb 13.4 Hct 41.5 MCV 80.3 MCH 25.9 MCHC 32.2 RDW 14.6 Plt Count 299 MPV 7.7 Absolute Neuts (auto) 4.3 Neutrophils % 61.7 Lymphocytes % 23.6 Monocytes % 9.8 Eosinophils % 4.4 Basophils % 0.5 Nucleated RBC % 0 Sodium 137 Potassium 4.3 Chloride 104 Carbon Dioxide 25 Anion Gap 7 L BUN 13 Creatinine 0.7 Creat Clearance w eGFR > 60 POC Glucometer 114 Random Glucose 173 H Calcium 8.1 L Total Bilirubin 0.3 AST 23 ALT 34 Alkaline Phosphatase 98 C-Reactive Protein Total Protein 7.0 Albumin 2.6 L 04/19/18 04/19/18 06:18 09:51 WBC RBC Hgb Hct MCV MCH MCHC RDW Plt Count MPV Absolute Neuts (auto) Neutrophils % Lymphocytes % Monocytes % Eosinophils % Basophils % Nucleated RBC % Sodium Potassium Chloride Carbon Dioxide Anion Gap BUN Creatinine Creat Clearance w eGFR POC Glucometer 184 214 Random Glucose Calcium Total Bilirubin AST ALT Alkaline Phosphatase C-Reactive Protein Total Protein Albumin Current Medications Generic Name Dose Route Start Last Admin Trade Name Freq PRN Reason Stop Dose Admin Acetaminophen 650 mg 04/12/18 14:16 04/14/18 08:47 Tylenol - PO 650 mg Q4H PRN Administration FEVER Collagenase 1 applic 04/13/18 10:00 04/18/18 10:09 Santyl - TP 1 applic DAILY ESTELA Administration Protocol Docusate Sodium 100 mg 04/12/18 22:00 04/19/18 09:46 Colace - PO 100 mg BID ESTELA Administration Enoxaparin Sodium 40 mg 04/13/18 10:00 04/19/18 09:46 Lovenox - SQ 40 mg DAILY ESTELA Administration Vancomycin HCl 1,250 mg/ 250 mls @ 166.667 mls/hr 04/18/18 15:00 04/18/18 17: 53 Sodium Chloride IVPB 166.667 mls/hr Q24H ESTELA Administration Protocol Insulin Aspart 1 vial 04/12/18 16:30 04/19/18 06:19 Novolog Vial Sliding Scale - SQ 3 units ACHS ESTELA Administration Protocol Insulin Aspart 18 units 04/17/18 16:30 04/19/18 10:02 Novolog Vial SQ Not Given TIDAC [facility] Insulin Detemir 58 units 04/17/18 08:41 04/19/18 06:19 Levemir Vial SQ 58 units 0700,2200 ESTELA Administration Lactobacillus Acidophilus 1 tab 04/12/18 14:30 04/19/18 09:46 Bacid - PO 1 tab DAILY ESTELA Administration Metformin HCl 1,000 mg 04/12/18 16:30 04/19/18 06:14 Glucophage - PO 1,000 mg BIDAC ESTELA Administration Ondansetron HCl 4 mg 04/12/18 14:16 Zofran Injection IVPUSH Q6H PRN NAUSEA Polyethylene Glycol 17 gm 04/13/18 10:00 04/18/18 10:08 Miralax (For Daily Use) - PO Not Given DAILY [facility] ASSESSMENT AND PLAN: This is a 53 year old man with a history of obesity, type 2 DM who presented to the ED with pain in his right foot with bloody drainage. 1. Diabetic ulcer with abscess of right foot - s/p I&D and debridement 04/15 - Culture growing group B Strep, E. faecalis, Prevotella - Continue Vancomycin x 3 more weeks - Continue wound care with Santyl 2. Type 2 DM, uncontrolled - HgbA1c 10.6 - Continue metformin, Levemir, pre-meal Novolog with correction scale 3. Morbid obesity with BMI 42.4
--- NOTE | 2018-04-19 12:43 | PN ---
Progress Note, Physician History of Present Illness: patient doing well no issues - Current Medication List Current Medications: Active Medications Acetaminophen (Tylenol -) 650 mg PO Q4H PRN PRN Reason: FEVER Last Admin: 04/14/18 08:47 Dose: 650 mg Collagenase (Santyl -) 1 applic TP DAILY [facility]; Protocol Last Admin: 04/18/18 10:09 Dose: 1 applic Docusate Sodium (Colace -) 100 mg PO BID [facility] Last Admin: 04/19/18 09:46 Dose: 100 mg Enoxaparin Sodium (Lovenox -) 40 mg SQ DAILY [facility] Last Admin: 04/19/18 09:46 Dose: 40 mg Vancomycin HCl 1,250 mg/ (Sodium Chloride) 250 mls @ 166.667 mls/hr IVPB Q24H [facility]; Protocol Last Admin: 04/18/18 17:53 Dose: 166.667 mls/hr Insulin Aspart (Novolog Vial Sliding Scale -) 1 vial SQ ACHS [facility]; Protocol Last Admin: 04/19/18 12:28 Dose: 3 units Insulin Aspart (Novolog Vial) 18 units SQ TIDAC [facility] Last Admin: 04/19/18 12:29 Dose: Not Given Insulin Detemir (Levemir Vial) 58 units SQ 0700,2200 [facility] Last Admin: 04/19/18 06:19 Dose: 58 units Lactobacillus Acidophilus (Bacid -) 1 tab PO DAILY [facility] Last Admin: 04/19/18 09:46 Dose: 1 tab Metformin HCl (Glucophage -) 1,000 mg PO BIDAC [facility] Last Admin: 04/19/18 06:14 Dose: 1,000 mg Ondansetron HCl (Zofran Injection) 4 mg IVPUSH Q6H PRN PRN Reason: NAUSEA Polyethylene Glycol (Miralax (For Daily Use) -) 17 gm PO DAILY [facility] Last Admin: 04/18/18 10:08 Dose: Not Given - Objective Vital Signs: Vital Signs Temperature 98.1 F 04/19/18 06:00 Pulse Rate 79 04/19/18 06:00 Respiratory Rate 20 04/19/18 09:00 Blood Pressure 136/81 04/19/18 06:00 O2 Sat by Pulse Oximetry (%) 98 04/19/18 09:00 Constitutional: Yes: No Distress, Calm, Obese Cardiovascular: Yes: Regular Rate and Rhythm Respiratory: Yes: Regular, CTA Bilaterally Gastrointestinal: Yes: Normal Bowel Sounds, Soft Musculoskeletal: Yes: WNL Extremities: Yes: Other Neurological: Yes: Alert, Oriented Psychiatric: Yes: Alert, Oriented Labs: CBC, BMP 04/19/18 06:00 04/19/18 06:00 INR, PTT INR 1.40 (0.83-1.09) H 04/12/18 09:45 Assessment/Plan Problem List - Problems (1) Diabetic foot ulcer Code(s): E11.621 - TYPE 2 DIABETES MELLITUS WITH FOOT ULCER; L97.509 - NON- PRESSURE CHRONIC ULCER OTH PRT UNSP FOOT W UNSP SEVERITY Qualifiers: Diabetic foot ulcer location: midfoot Diabetes mellitus type: type 2 Laterality: right Non-pressure ulcer stage: with fat layer exposed Qualified Code(s): E11.621 - Type 2 diabetes mellitus with foot ulcer; L97.412 - Non-pressure chronic ulcer of right heel and midfoot with fat layer exposed (2) Diabetes mellitus Code(s): E11.9 - TYPE 2 DIABETES MELLITUS WITHOUT COMPLICATIONS Qualifiers: Diabetes mellitus type: type 2 Diabetes mellitus producer arborist manager insulin use: with producer arborist manager use Diabetes mellitus complication status: with skin complications Diabetes mellitus complication detail: with foot ulcer Qualified Code(s): E11.621 - Type 2 diabetes mellitus with foot ulcer; L97.509 - Non-pressure chronic ulcer of other part of unspecified foot with unspecified severity; Z79.4 - FDC (current) use of insulin (3) Morbid obesity Assessment/Plan: -will need outpatient weigh loss plan Code(s): E66.01 - MORBID (SEVERE) OBESITY DUE TO EXCESS CALORIES 4 osteo plan vanco patient will need it for 3 more weeks wound care rest as per the podiatry team and primary care
[2018-04-19] MEDS: COLLAGENASE CLOSTRIDIUM HIST. 30 GRAMS TUBE TP SCH (14:32)
--- NOTE | 2018-04-19 15:18 | PN ---
Progress Note (short form) - Note Progress Note: Pt seen in bed. POD#4 vss, Tmax 97.6 +resolved cellulitis, -drainage, -mal odor, -tenderness, -cellulitis, + granulation, wbc=7.0, cellulitis resolved resolved abscess Betadine irrigation. Betadine dressing applied. Discussed with ID. Pt being dc to home tomorrow with abx and wound care.
[2018-04-19] MEDS: POLYETHYLENE GLYCOL 3350 119 GM BTL PO SCH (15:38)
[2018-04-19] MEDS ORDERED: PT OWN MED DRAWER 7, Y5N ONE (15:39)
[2018-04-19] MEDS: VANCOMYCIN 1,250 MG in SODIUM CHLORIDE 250 ML IVPB SCH (15:40)
--- NOTE | 2018-04-19 17:15 | PATH ---
Surgical Pathology Report Patient Name: CELINA HUBBARD Med. Rec. #: [id number] /Age/Gender: 1965 (Age: 53) / M Account: [id number] Location: [facility] MED/SURG Taken: 04/15/2018 Received: 04/18/2018 Reported: 04/19/2018 Physicians: EVA Dallas M.D. Specimen(s) Received ABSCESS RIGHT SOLE OF FOOT Clinical History Abscess right sole of foot Final Diagnosis FOOT, SOLE, RIGHT, DEBRIDEMENT: FRAGMENTS OF SUPERFICIAL SKIN, AND ACUTE INFLAMMATORY EXUDATE CONSISTENT WITH ABSCESS. Electronically Signed Stephy Hernández M.D. Gross Description Received in formalin, labeled with the patient's name and indicated on the requisition to be an abscess from the right sole of the foot, is a 4.7 x 3.0 x 0.4 cm aggregate of carl brown, necrotic portions of skin and soft tissue. Baggage Agent Supervisor sections are submitted in one cassette. /04/18/201804/18/2018
[2018-04-20] MEDS: metFORMIN HCL 500 MG TABLET (FP) PO SCH ×2 (06:32→17:24)
[2018-04-20] MEDS: INSULIN SLIDING SCALE (NOVOLOG) 1 VIAL SQ SCH ×3 (06:32→17:25)
[2018-04-20] MEDS: INSULIN (LEVEMIR) 100 UNITS/ML UNITS SQ SCH (06:33)
[2018-04-20] MEDS: INSULIN (NOVOLOG) ASPART 100 UNITS/ML 10ML VIAL SQ SCH ×3 (06:39→17:27)
[2018-04-20] MEDS ORDERED: PT OWN MED DRAWER 7, Y5N ONE (09:55)
[2018-04-20] MEDS: DOCUSATE SODIUM 100 MG CAPSULE (FP) PO SCH (09:58)
[2018-04-20] MEDS: POLYETHYLENE GLYCOL 3350 119 GM BTL PO SCH (09:58)
[2018-04-20] MEDS: LACTOBACILLUS ACIDOPHILUS 1 TABLET PO SCH (09:58)
--- NOTE | 2018-04-20 10:38 | PN ---
Teaching Attending Note Name of Resident: Carmine Henderson ATTENDING PHYSICIAN STATEMENT I saw and evaluated the patient. I reviewed the resident's note and discussed the case with the resident. I agree with the resident's findings and plan as documented. SUBJECTIVE: Mr Olivares is without complaint. No cp, sob, n/v OBJECTIVE: Gen: obese, nad Pulm: ctab w/o w/r/r CV: rrr w/o m/r/g Abd: +bs, s/nt/nd Ext: no c/c/e ASSESSMENT AND PLAN: -PICC line placement today -will need vancomycin for 3 weeks -continue metformin, levemir, and novolog -close follow up with endocrinology, podiatry, and ID -patient to obtain PCP -safe for discharge home today Problem List - Problems (1) Diabetic foot ulcer Code(s): E11.621 - TYPE 2 DIABETES MELLITUS WITH FOOT ULCER; L97.509 - NON- PRESSURE CHRONIC ULCER OTH PRT UNSP FOOT W UNSP SEVERITY Qualifiers: Diabetic foot ulcer location: midfoot Diabetes mellitus type: type 2 Laterality: right Non-pressure ulcer stage: with fat layer exposed Qualified Code(s): E11.621 - Type 2 diabetes mellitus with foot ulcer; L97.412 - Non-pressure chronic ulcer of right heel and midfoot with fat layer exposed (2) Diabetes mellitus Code(s): E11.9 - TYPE 2 DIABETES MELLITUS WITHOUT COMPLICATIONS Qualifiers: Diabetes mellitus type: type 2 Diabetes mellitus senior living insulin use: with senior living use Diabetes mellitus complication status: with skin complications Diabetes mellitus complication detail: with foot ulcer Qualified Code(s): E11.621 - Type 2 diabetes mellitus with foot ulcer; L97.509 - Non-pressure chronic ulcer of other part of unspecified foot with unspecified severity; Z79.4 - intermodal customer service (current) use of insulin (3) Morbid obesity Code(s): E66.01 - MORBID (SEVERE) OBESITY DUE TO EXCESS CALORIES
--- NOTE | 2018-04-20 11:56 | PN ---
Progress Note, Physician History of Present Illness: stable no new issues - Current Medication List Current Medications: Active Medications Acetaminophen (Tylenol -) 650 mg PO Q4H PRN PRN Reason: FEVER Last Admin: 04/14/18 08:47 Dose: 650 mg Collagenase (Santyl -) 1 applic TP DAILY [facility]; Protocol Last Admin: 04/19/18 14:32 Dose: Not Given Docusate Sodium (Colace -) 100 mg PO BID [facility] Last Admin: 04/20/18 09:58 Dose: 100 mg Vancomycin HCl 1,250 mg/ (Sodium Chloride) 250 mls @ 166.667 mls/hr IVPB Q24H [facility]; Protocol Last Admin: 04/19/18 15:40 Dose: 166.667 mls/hr Insulin Aspart (Novolog Vial Sliding Scale -) 1 vial SQ ACHS [facility]; Protocol Last Admin: 04/20/18 06:32 Dose: 3 units Insulin Aspart (Novolog Vial) 18 units SQ TIDAC [facility] Last Admin: 04/20/18 06:39 Dose: Not Given Insulin Detemir (Levemir Vial) 58 units SQ 0700,2200 [facility] Last Admin: 04/20/18 06:33 Dose: 58 units Lactobacillus Acidophilus (Bacid -) 1 tab PO DAILY [facility] Last Admin: 04/20/18 09:58 Dose: 1 tab Metformin HCl (Glucophage -) 1,000 mg PO BIDAC [facility] Last Admin: 04/20/18 06:32 Dose: 1,000 mg Ondansetron HCl (Zofran Injection) 4 mg IVPUSH Q6H PRN PRN Reason: NAUSEA Polyethylene Glycol (Miralax (For Daily Use) -) 17 gm PO DAILY [facility] Last Admin: 04/20/18 09:58 Dose: Not Given - Objective Vital Signs: Vital Signs Temperature 98.1 F 04/20/18 05:57 Pulse Rate 74 04/20/18 05:57 Respiratory Rate 18 04/20/18 05:57 Blood Pressure 136/84 04/20/18 05:57 O2 Sat by Pulse Oximetry (%) 98 04/19/18 21:00 Constitutional: Yes: No Distress, Calm Cardiovascular: Yes: Regular Rate and Rhythm Respiratory: Yes: Regular, CTA Bilaterally Gastrointestinal: Yes: Normal Bowel Sounds, Soft Musculoskeletal: Yes: WNL Extremities: Yes: Other Wound/Incision: Yes: Dressing Dry and Intact Neurological: Yes: Alert, Oriented Psychiatric: Yes: Alert, Oriented Labs: CBC, BMP 04/19/18 06:00 04/19/18 06:00 INR, PTT INR 1.40 (0.83-1.09) H 04/12/18 09:45 Assessment/Plan Problem List - Problems (1) Diabetic foot ulcer Code(s): E11.621 - TYPE 2 DIABETES MELLITUS WITH FOOT ULCER; L97.509 - NON- PRESSURE CHRONIC ULCER OTH PRT UNSP FOOT W UNSP SEVERITY Qualifiers: Diabetic foot ulcer location: midfoot Diabetes mellitus type: type 2 Laterality: right Non-pressure ulcer stage: with fat layer exposed Qualified Code(s): E11.621 - Type 2 diabetes mellitus with foot ulcer; L97.412 - Non-pressure chronic ulcer of right heel and midfoot with fat layer exposed (2) Diabetes mellitus Code(s): E11.9 - TYPE 2 DIABETES MELLITUS WITHOUT COMPLICATIONS Qualifiers: Diabetes mellitus type: type 2 Diabetes mellitus local intermodal truck driver insulin use: with local intermodal truck driver use Diabetes mellitus complication status: with skin complications Diabetes mellitus complication detail: with foot ulcer Qualified Code(s): E11.621 - Type 2 diabetes mellitus with foot ulcer; L97.509 - Non-pressure chronic ulcer of other part of unspecified foot with unspecified severity; Z79.4 - manager long term care (current) use of insulin (3) Morbid obesity Assessment/Plan: -will need outpatient weigh loss plan Code(s): E66.01 - MORBID (SEVERE) OBESITY DUE TO EXCESS CALORIES 4 osteo plan vanco patient will need it for 3 more weeks wound care rest as per the podiatry team and primary care
[2018-04-20] MEDS: VANCOMYCIN 1,250 MG in SODIUM CHLORIDE 250 ML IVPB SCH (15:12)
--- NOTE | 2018-04-20 15:50 | DS ---
Physical Exam: SUBJECTIVE:Patient seen and examined at bedside. No overnight events. No new complaints. No foot pain. Feels well overall. Denies CP,ISAACS, SOB, abdominal pain , nausea or vomiting. OBJECTIVE: Vital Signs Period Temp Pulse Resp BP Sys/Vasquez Pulse Ox Last 24 Hr 97.2 F-98.3 F 74-93 18-20 130-138/80-85 98-98 PHYSICAL EXAM GENERAL: AAOx3, NAD ENT: moist mucous membranes. LUNGS: CTAB, no wheezes, no crackles, no accessory muscle use. HEART: RRR, S1, S2 without murmur, rub or gallop. ABDOMEN: Soft, obese, nontender, nondistended, normoactive bowel sounds EXTREMITIES: 2+ pulses, warm, well-perfused, no edema. NEUROLOGICAL: Cranial nerves II through XII grossly intact. Normal speech, gait not observed. PSYCH: Normal mood, normal affect. SKIN:right foot wrapped; appears C/D/I LABS Laboratory Results - last 24 hr 04/19/18 04/19/18 04/20/18 16:35 22:18 06:07 POC Glucometer 231 209 194 04/20/18 12:57 POC Glucometer 149 Microbiology 04/15/18 11:52 Foot - Right Gram Stain - Final 04/15/18 11:52 Foot - Right Wound Culture - Final Strep Agalactiae Group B Enterococcus Faecalis Prevotella Bivia 04/12/18 17:56 Abscess Gram Stain - Final 04/12/18 17:56 Abscess Wound Culture - Final Enterococcus Faecalis Strep Agalactiae Group B Staphylococcus Coagulase Neg Prevotella Bivia 04/12/18 10:10 Abscess Gram Stain - Final 04/12/18 10:10 Abscess Wound Culture - Final Strep Agalactiae Group B Enterococcus Faecalis#2 Staphylococcus Coagulase Neg Prevotella Bivia 04/12/18 10:00 Blood - Peripheral Venous Blood Culture - Final NO GROWTH AFTER 5 DAYS INCUBATION 04/12/18 09:45 Blood - Peripheral Venous Blood Culture - Final NO GROWTH AFTER 5 DAYS INCUBATION HOSPITAL COURSE: 53 year old male with PMhx of IDDM who presented in with a right foot infection.Imaging did not show clear signs of osteomyelitis. Patient was evaluated by podiatry and vascular. Ulcer was incised and drained with cultures sent. Infectious disease was consulted and patient was placed on broad spectrum antibiotics. Cultures grew Group B strep and E.Faecalis and started on Vancomycin based off sensitivities. He will need an additional 3 weeks of IV Vanco for which a Picc line has been placed and will come to infusion clinic here at [place]. Wound care instruction as per podiatry and family has been educated on wound care. In term of his diabetes he was placed on diabetic diet and Levemir and Novolog for long and short acting coverage. He is instructed to follow up with primary physician, podiatry and vascular in one week. He is stable for discharge home and will return daily of IV antibiotic infusion. Date of Admission:04/12/18 Date of Discharge: 04/20/18 Minutes to complete discharge: 37 Discharge Summary Reason For Visit: DIABETIC FOOT ULCER, CELLULITIS Current Active Problems CRP elevated (Acute) Cellulitis (Acute) DVT prophylaxis (Acute) Diabetic foot ulcer (Acute) ESR raised (Acute) Morbid obesity (Acute) Condition: Improved - Instructions Diet, Activity, Other Instructions: You have been seen and treated for an infection of your foot. You will come to hospital daily for continued antibiotic treatments. You will need 3 more weeks of Vancomycin for this infection. You should follow up with Dr. Moreira in two weeks. Also make an appointment to see marine erector and vascular Dr. Marin and Dr. Beckford in one week. You will need to change you dressing daily and well as wound care as you have been instructed with betadine and betadine dressing. You can resume a heart healthy diabetic diet. Increase your activity as tolerated. You can resume home medications as previously prescribed. If you experience increase in pain, fever or chills please return to ER immediately. You will have daily infusion for your antibiotics at [facility]. Your appointment is scheduled for 1129. When you come to the hospital , you have to go to registration and then go for the infusion. Referrals: Josie Moreira MD [Staff Physician] - 2 Weeks Junior Beckford MD [Staff Physician] - George Marin DPM [Staff Physician] - 1 Week Disposition: HOME - Home Medications Comprehensive Discharge Medication List: Ambulatory Orders Insulin (Novolog) [Novolog -] 28 units AC 12/20/15 Insulin Glargine,Hum.rec.anlog [Basaglar Kwikpen U-100] 62 unit SQ HS 04/12/18 Metformin HCl [Glucophage] 1,000 mg PO BID 04/12/18 Problem List - Problems (1) Diabetic foot ulcer (2) Diabetes mellitus (3) Morbid obesity (4) DVT prophylaxis This patient is new to me today: No Emergency Visit: Yes ED Registration Date: 04/12/18 Care time: The patient presented to the Emergency Department on the above date and was hospitalized for further evaluation of their emergent condition. Critical Care patient: No - Discharge Referral Referred to [facility] Med P.C.: No
[2018-04-20] MEDS: COLLAGENASE CLOSTRIDIUM HIST. 30 GRAMS TUBE TP SCH (16:21)
[2018-04-20 17:20] VITALS: BP 128/78; PULSE 77; TEMP 97.9
== END 2018-04-20 20:00 | disposition home or self-care (01) | DRG 380 ==
LOC: JER 09:07 → JERBED 13:16 → J7W 16:16
PROVIDERS: ADMIT Internal Medicine; ATTEND Internal Medicine
PROC: 0JBQ0ZZ Excision of Right Foot Subcutaneous Tissue and Fascia, Open Approach (ICD-10-PCS; principal; 2018-04-15)
PROC: 0Y9M0ZX Drainage of Right Foot, Open Approach, Diagnostic (ICD-10-PCS; 2018-04-15)
PROC: 02HV33Z Insertion of Infusion Device into Superior Vena Cava, Percutaneous Approach (ICD-10-PCS; 2018-04-20)
PROC: B518ZZA Fluoroscopy of Superior Vena Cava, Guidance (ICD-10-PCS; 2018-04-20)
DX: E11.621 Type 2 diabetes mellitus with foot ulcer (principal); L97.412 Non-pressure chronic ulcer of right heel and midfoot with fat layer exposed; L03.115 Cellulitis of right lower limb; E66.01 Morbid (severe) obesity due to excess calories; Z68.41 Body mass index [BMI] 40.0-44.9, adult; E11.65 Type 2 diabetes mellitus with hyperglycemia; Z79.4 Long term (current) use of insulin; B95.1 Streptococcus, group B, as the cause of diseases classified elsewhere
CPT/HCPCS: 36415; 36569; 71045-TC-FY; 73630-TC-RT-FY; 73718-TC; 77001-TC-FY; 80048; 80053; 80061; 82009; 82803; 82962; 83036; 83605; 83721; 83735; 84100; 85025; 85610; 85651; 85730; 86140; 86850; 86900; 86901; 87040; 87070; 87076; 87077; 87186; 87205; 88304-TC; 93005; 93010; 99285-25; C1751; G0480; J7030

== ENCOUNTER 2018-04-21 11:12 | Day surgery (SDC) | payer OTHER ==
[2018-04-21] MEDS ORDERED: VANCOMYCIN 1,250 MG in SODIUM CHLORIDE 250 ML IVPB ONE (13:00)
[2018-04-21 13:33] VITALS: TEMP 98.2
[2018-04-21 14:46] VITALS: BP 140/87; PULSE 83
== END 2018-04-21 14:20 | disposition home or self-care (01) ==
LOC: JINFUSION 11:12
PROVIDERS: ATTEND Internal Medicine Infectious Disease
DX: E11.621 Type 2 diabetes mellitus with foot ulcer (principal); L97.412 Non-pressure chronic ulcer of right heel and midfoot with fat layer exposed; L03.115 Cellulitis of right lower limb; B95.1 Streptococcus, group B, as the cause of diseases classified elsewhere; Z79.4 Long term (current) use of insulin
CPT/HCPCS: 96365; 96366

== ENCOUNTER 2018-04-22 11:53 | Day surgery (SDC) | payer OTHER ==
[~2018-04-22 11:53] MED LIST: VANCOMYCIN 1,250 MG in SODIUM CHLORIDE 250 ML IVPB ONE
[2018-04-22 12:25] VITALS: TEMP 98.1
[2018-04-22 16:02] VITALS: BP 139/84; PULSE 85
== END 2018-04-22 14:00 | disposition home or self-care (01) ==
LOC: JINFUSION 11:53
PROVIDERS: ATTEND Internal Medicine Infectious Disease
DX: E11.621 Type 2 diabetes mellitus with foot ulcer (principal); L97.412 Non-pressure chronic ulcer of right heel and midfoot with fat layer exposed; L03.115 Cellulitis of right lower limb; B95.1 Streptococcus, group B, as the cause of diseases classified elsewhere; Z79.4 Long term (current) use of insulin
CPT/HCPCS: 96365; 96366

== ENCOUNTER 2018-04-23 11:11 | Day surgery (SDC) | payer OTHER ==
[2018-04-23 11:39] VITALS: TEMP 98
[2018-04-23] MEDS ORDERED: VANCOMYCIN 1,250 MG in SODIUM CHLORIDE 250 ML IVPB ONE (12:30)
[2018-04-23] MEDS ORDERED: VANCOMYCIN 1,250 MG in DEXTROSE 5%-WATER - 250 ML IVPB ONE (12:30)
[2018-04-23 14:34] VITALS: BP 148/86; PULSE 95
== END 2018-04-23 15:58 | disposition home or self-care (01) ==
LOC: JINFUSION 11:11 → J7W 11:12 → JINFUSION 15:58
PROVIDERS: ATTEND Internal Medicine Infectious Disease
DX: E11.621 Type 2 diabetes mellitus with foot ulcer (principal); L97.412 Non-pressure chronic ulcer of right heel and midfoot with fat layer exposed; L03.115 Cellulitis of right lower limb; B95.1 Streptococcus, group B, as the cause of diseases classified elsewhere; Z79.4 Long term (current) use of insulin
CPT/HCPCS: 96365; 96366

== ENCOUNTER 2018-04-24 11:13 | Day surgery (SDC) | payer OTHER ==
[2018-04-24] MEDS ORDERED: VANCOMYCIN 1,250 MG in SODIUM CHLORIDE 250 ML IVPB SCH (12:00)
[2018-04-24] MEDS ORDERED: VANCOMYCIN 500 MG in SODIUM CHLORIDE 100 ML IVPB ONE ×4 (13:15→15:30)
[2018-04-24] MEDS ORDERED: VANCOMYCIN 1,250 MG in SODIUM CHLORIDE 250 ML IVPB ONE (14:00)
[2018-04-24 15:54] VITALS: BP 145/80; PULSE 84; TEMP 98.1
[2018-04-25] MEDS ORDERED: VANCOMYCIN 1,500 MG in SODIUM CHLORIDE 500 ML IVPB SCH (14:00)
== END 2018-04-24 15:55 | disposition home or self-care (01) ==
LOC: JINFUSION 11:13 → J7W 11:14 → JINFUSION 15:55
PROVIDERS: ATTEND Internal Medicine Infectious Disease
DX: E11.621 Type 2 diabetes mellitus with foot ulcer (principal); L97.412 Non-pressure chronic ulcer of right heel and midfoot with fat layer exposed; B95.1 Streptococcus, group B, as the cause of diseases classified elsewhere; Z79.4 Long term (current) use of insulin
CPT/HCPCS: 96365; 96366; 96367; G0480

== ENCOUNTER 2018-04-25 11:47 | Day surgery (SDC) | payer OTHER ==
[2018-04-25] MEDS ORDERED: VANCOMYCIN 1,250 MG in SODIUM CHLORIDE 250 ML IVPB ONE (13:00)
[2018-04-25 13:19] VITALS: TEMP 98.7
[2018-04-25 15:21] VITALS: BP 126/87; PULSE 86
== END 2018-04-25 15:23 | disposition home or self-care (01) ==
LOC: JINFUSION 11:47
PROVIDERS: ATTEND Internal Medicine Infectious Disease
DX: E11.621 Type 2 diabetes mellitus with foot ulcer (principal); L97.412 Non-pressure chronic ulcer of right heel and midfoot with fat layer exposed; B95.1 Streptococcus, group B, as the cause of diseases classified elsewhere; Z79.4 Long term (current) use of insulin
CPT/HCPCS: 96365; 96366

== ENCOUNTER 2018-04-26 11:24 | Day surgery (SDC) | payer OTHER ==
[2018-04-26 11:52] LABS: HEMATOCRIT 39.9 % (35.4-49); HEMOGLOBIN 13.7 GM/dL (11.7-16.9); MCH 27.1 pg (25.7-33.7); MCHC 34.3 g/dl (32.0-35.9); MEAN CELL VOLUME 79.1 fl (80-96); MEAN PLT VOLUME 7.8 fl (7.5-11.1); PLATELET COUNT 256 K/MM3 (134-434); RBC 5.05 M/mm3 (4.00-5.60); RDW 14.7 % (11.9-15.9); WHITE BLOOD COUNT 8.1 K/mm3 (4.0-10.0)
[2018-04-26 12:30] LABS: ANION GAP 6 MMOL/L (8-16); BLOOD UREA NITROGEN 13 mg/dL (7-18); CALCIUM 8.4 mg/dL (8.5-10.1); CHLORIDE 99 mmol/L (98-107); CO2 29 mmol/L (21-32); CREATININE 0.8 mg/dL (0.55-1.3); GLUCOSE,RANDOM 287 mg/dL (74-106); POTASSIUM 4.5 mmol/L (3.5-5.1); SODIUM 134 mmol/L (136-145)
[2018-04-26 14:25] VITALS: BP 138/76; PULSE 90; TEMP 97.8
[2018-04-26] MEDS ORDERED: VANCOMYCIN 1,500 MG in SODIUM CHLORIDE 500 ML IVPB ONE (15:30)
== END 2018-04-26 13:50 | disposition home or self-care (01) ==
LOC: JINFUSION 11:24
PROVIDERS: ATTEND Internal Medicine Infectious Disease
DX: E11.621 Type 2 diabetes mellitus with foot ulcer (principal); L97.412 Non-pressure chronic ulcer of right heel and midfoot with fat layer exposed; B95.1 Streptococcus, group B, as the cause of diseases classified elsewhere; Z79.4 Long term (current) use of insulin
CPT/HCPCS: 36415; 80048; 85027; 96365; 96366; G0480

== ENCOUNTER 2018-04-27 07:56 | Day surgery (SDC) | payer OTHER ==
[2018-04-27 08:34] VITALS: TEMP 97.9
[2018-04-27] MEDS ORDERED: VANCOMYCIN 1,500 MG in SODIUM CHLORIDE 500 ML IVPB ONE (09:00)
[2018-04-27 10:53] VITALS: BP 137/84; PULSE 89
== END 2018-04-27 10:55 | disposition home or self-care (01) ==
LOC: JINFUSION 07:56
PROVIDERS: ATTEND Internal Medicine Infectious Disease
DX: E11.621 Type 2 diabetes mellitus with foot ulcer (principal); L97.412 Non-pressure chronic ulcer of right heel and midfoot with fat layer exposed; B95.1 Streptococcus, group B, as the cause of diseases classified elsewhere; Z79.4 Long term (current) use of insulin
CPT/HCPCS: 96365; 96366

== ENCOUNTER 2018-04-27 19:25 | Day surgery (SDC) | payer OTHER ==
[2018-04-27] MEDS ORDERED: VANCOMYCIN 1,500 MG in DEXTROSE 5%-WATER - 500 ML IVPB ONE (20:15)
== END 2018-04-27 21:00 | disposition home or self-care (01) ==
LOC: JINFUSION 19:25 → J7W 19:55 → JINFUSION 21:00
PROVIDERS: ATTEND Internal Medicine Infectious Disease
DX: E11.621 Type 2 diabetes mellitus with foot ulcer (principal); L97.412 Non-pressure chronic ulcer of right heel and midfoot with fat layer exposed; Z79.4 Long term (current) use of insulin
CPT/HCPCS: 96365

== ENCOUNTER 2018-04-28 07:42 | Day surgery (SDC) | payer OTHER ==
[2018-04-28] MEDS ORDERED: VANCOMYCIN 1,500 MG in DEXTROSE 5%-WATER - 500 ML IVPB ONE (08:00)
[2018-04-28 08:37] VITALS: TEMP 97.9
[2018-04-28 11:23] VITALS: BP 134/84; PULSE 92
== END 2018-04-28 10:25 | disposition home or self-care (01) ==
LOC: JINFUSION 07:42
PROVIDERS: ATTEND Internal Medicine Infectious Disease
DX: E11.621 Type 2 diabetes mellitus with foot ulcer (principal); L97.412 Non-pressure chronic ulcer of right heel and midfoot with fat layer exposed; B95.1 Streptococcus, group B, as the cause of diseases classified elsewhere; Z79.4 Long term (current) use of insulin
CPT/HCPCS: 96365; 96366

== ENCOUNTER 2018-04-28 20:10 | Day surgery (SDC) | payer OTHER ==
[2018-04-28] MEDS ORDERED: VANCOMYCIN 1,500 MG in DEXTROSE 5%-WATER - 500 ML IVPB ONE (20:45)
[2018-04-28 23:41] VITALS: BP 128/73; PULSE 89; TEMP 98
== END 2018-04-28 23:50 | disposition home or self-care (01) ==
LOC: JINFUSION 20:10 → J7W 20:10 → JINFUSION 23:50
PROVIDERS: ATTEND Internal Medicine Infectious Disease
DX: E11.621 Type 2 diabetes mellitus with foot ulcer (principal); L97.412 Non-pressure chronic ulcer of right heel and midfoot with fat layer exposed; B95.1 Streptococcus, group B, as the cause of diseases classified elsewhere; Z79.4 Long term (current) use of insulin
CPT/HCPCS: 96365

== ENCOUNTER 2018-04-29 07:48 | Day surgery (SDC) | payer OTHER ==
[~2018-04-29 07:48] MED LIST changes: -VANCOMYCIN 1,250 MG in SODIUM CHLORIDE 250 ML IVPB ONE; +VANCOMYCIN 1,500 MG in DEXTROSE 5%-WATER - 500 ML IVPB ONE
[2018-04-29 11:14] VITALS: BP 142/89; PULSE 82
== END 2018-04-29 11:12 | disposition home or self-care (01) ==
LOC: JINFUSION 07:48
PROVIDERS: ATTEND Internal Medicine Infectious Disease
DX: E11.621 Type 2 diabetes mellitus with foot ulcer (principal); L97.412 Non-pressure chronic ulcer of right heel and midfoot with fat layer exposed; B95.1 Streptococcus, group B, as the cause of diseases classified elsewhere; Z79.4 Long term (current) use of insulin
CPT/HCPCS: 96365; 96366

== ENCOUNTER 2018-04-29 19:34 | Day surgery (SDC) | payer OTHER ==
[2018-04-29] MEDS ORDERED: VANCOMYCIN 1,500 MG in DEXTROSE 5%-WATER - 500 ML IVPB ONE (20:15)
[2018-04-29 20:34] VITALS: BP 142/81; PULSE 95; TEMP 98.4
== END 2018-04-29 22:30 | disposition home or self-care (01) ==
LOC: JINFUSION 19:34 → J7W 19:35 → JINFUSION 22:30
PROVIDERS: ATTEND Internal Medicine Infectious Disease
DX: E11.621 Type 2 diabetes mellitus with foot ulcer (principal); L97.412 Non-pressure chronic ulcer of right heel and midfoot with fat layer exposed; B95.1 Streptococcus, group B, as the cause of diseases classified elsewhere; Z79.4 Long term (current) use of insulin
CPT/HCPCS: 96365; 96366

== ENCOUNTER 2018-04-30 07:45 | Day surgery (SDC) | payer OTHER ==
[2018-04-30] MEDS ORDERED: VANCOMYCIN 1,500 MG in DEXTROSE 5%-WATER - 500 ML IVPB ONE (09:00)
[2018-04-30 12:56] VITALS: TEMP 98
[2018-04-30 12:58] VITALS: BP 131/85; PULSE 90
== END 2018-04-30 11:30 | disposition home or self-care (01) ==
LOC: JINFUSION 07:45 → J7W 07:52 → JINFUSION 11:30
PROVIDERS: ATTEND Internal Medicine Infectious Disease
DX: E11.621 Type 2 diabetes mellitus with foot ulcer (principal); L97.412 Non-pressure chronic ulcer of right heel and midfoot with fat layer exposed; B95.1 Streptococcus, group B, as the cause of diseases classified elsewhere; Z79.4 Long term (current) use of insulin
CPT/HCPCS: 96365; 96366

== ENCOUNTER 2018-04-30 18:30 | Day surgery (SDC) | payer OTHER ==
[2018-04-30] MEDS ORDERED: VANCOMYCIN 1,500 MG in DEXTROSE 5%-WATER - 500 ML IVPB ONE (20:15)
[2018-04-30 22:18] VITALS: BP 147/79; PULSE 95; TEMP 97.8
== END 2018-04-30 22:30 | disposition home or self-care (01) ==
LOC: JINFUSION 18:30 → J7W 18:30 → JINFUSION 22:30
PROVIDERS: ATTEND Internal Medicine Infectious Disease
DX: E11.621 Type 2 diabetes mellitus with foot ulcer (principal); L97.412 Non-pressure chronic ulcer of right heel and midfoot with fat layer exposed; B95.1 Streptococcus, group B, as the cause of diseases classified elsewhere; Z79.4 Long term (current) use of insulin
CPT/HCPCS: 96365

== ENCOUNTER 2018-05-01 08:03 | Day surgery (SDC) | payer OTHER ==
[2018-05-01] MEDS ORDERED: VANCOMYCIN 1,500 MG in DEXTROSE 5%-WATER - 500 ML IVPB SCH (10:00)
[2018-05-01 12:48] VITALS: TEMP 98.2
[2018-05-01 12:49] VITALS: BP 128/83; PULSE 92
== END 2018-05-01 12:32 | disposition home or self-care (01) ==
LOC: JINFUSION 08:03 → J7W 08:04 → JINFUSION 12:32
PROVIDERS: ATTEND Internal Medicine Infectious Disease
DX: E11.621 Type 2 diabetes mellitus with foot ulcer (principal); L97.412 Non-pressure chronic ulcer of right heel and midfoot with fat layer exposed; B95.1 Streptococcus, group B, as the cause of diseases classified elsewhere; Z79.4 Long term (current) use of insulin
CPT/HCPCS: 96365; G0480

== ENCOUNTER 2018-05-01 18:30 | Day surgery (SDC) | payer OTHER ==
[2018-05-01] MEDS ORDERED: VANCOMYCIN 1,500 MG in DEXTROSE 5%-WATER - 500 ML IVPB ONE (20:00)
[2018-05-01 22:39] VITALS: BP 141/88; PULSE 92; TEMP 98.1
== END 2018-05-01 22:42 | disposition home or self-care (01) ==
LOC: JINFUSION 18:30
PROVIDERS: ATTEND Internal Medicine Infectious Disease
DX: E11.621 Type 2 diabetes mellitus with foot ulcer (principal); L97.412 Non-pressure chronic ulcer of right heel and midfoot with fat layer exposed; B95.1 Streptococcus, group B, as the cause of diseases classified elsewhere; Z79.4 Long term (current) use of insulin
CPT/HCPCS: 96365

== ENCOUNTER 2018-05-02 07:12 | Day surgery (SDC) | payer OTHER ==
[2018-05-02 11:30] VITALS: BP 129/87; PULSE 87; TEMP 97.9
== END 2018-05-02 11:00 | disposition home or self-care (01) ==
LOC: JINFUSION 07:12
PROVIDERS: ATTEND Internal Medicine Infectious Disease
DX: E11.621 Type 2 diabetes mellitus with foot ulcer (principal); L97.412 Non-pressure chronic ulcer of right heel and midfoot with fat layer exposed; B95.1 Streptococcus, group B, as the cause of diseases classified elsewhere; Z79.4 Long term (current) use of insulin
CPT/HCPCS: 96365; 96366

== ENCOUNTER 2018-05-02 19:37 | Day surgery (SDC) | payer OTHER ==
[2018-05-02 21:14] VITALS: TEMP 98.5
[2018-05-02] MEDS ORDERED: VANCOMYCIN 1,500 MG in DEXTROSE 5%-WATER - 500 ML IVPB ONE (21:15)
[2018-05-02 23:55] VITALS: BP 128/77; PULSE 82
== END 2018-05-02 23:30 | disposition home or self-care (01) ==
LOC: JINFUSION 19:37 → J7W 19:38 → JINFUSION 23:30
PROVIDERS: ATTEND Internal Medicine Infectious Disease
DX: E11.621 Type 2 diabetes mellitus with foot ulcer (principal); L97.412 Non-pressure chronic ulcer of right heel and midfoot with fat layer exposed; B95.1 Streptococcus, group B, as the cause of diseases classified elsewhere; Z79.4 Long term (current) use of insulin
CPT/HCPCS: 96365

== ENCOUNTER 2018-05-03 07:30 | Day surgery (SDC) | payer OTHER ==
[2018-05-03] MEDS ORDERED: VANCOMYCIN 1,500 MG in DEXTROSE 5%-WATER - 500 ML IVPB ONE (08:30)
[2018-05-03 11:11] VITALS: BP 155/82; PULSE 81; TEMP 98
== END 2018-05-03 11:12 | disposition home or self-care (01) ==
LOC: JINFUSION 07:30 → J7W 07:31 → JINFUSION 11:12
PROVIDERS: ATTEND Internal Medicine Infectious Disease
DX: E11.621 Type 2 diabetes mellitus with foot ulcer (principal); L97.412 Non-pressure chronic ulcer of right heel and midfoot with fat layer exposed; B95.1 Streptococcus, group B, as the cause of diseases classified elsewhere; Z79.4 Long term (current) use of insulin
CPT/HCPCS: 96365; 96366

== ENCOUNTER 2018-05-03 20:39 | Day surgery (SDC) | payer OTHER ==
[2018-05-03] MEDS ORDERED: VANCOMYCIN 1,500 MG in DEXTROSE 5%-WATER - 500 ML IVPB ONE (21:15)
[2018-05-03 22:01] LABS: HEMATOCRIT 38.4 % (35.4-49); HEMOGLOBIN 13.3 GM/dL (11.7-16.9); MCH 27.1 pg (25.7-33.7); MCHC 34.7 g/dl (32.0-35.9); MEAN CELL VOLUME 78.3 fl (80-96); MEAN PLT VOLUME 7.7 fl (7.5-11.1); PLATELET COUNT 185 K/MM3 (134-434); RBC 4.91 M/mm3 (4.00-5.60); RDW 14.9 % (11.9-15.9); WHITE BLOOD COUNT 7.8 K/mm3 (4.0-10.0)
[2018-05-03 22:32] LABS: ALBUMIN 3.3 g/dl (3.4-5.0); ALK PHOS 131 U/L (45-117); ANION GAP 9 MMOL/L (8-16); BILIRUBIN,TOTAL 0.3 mg/dL (0.2-1); BLOOD UREA NITROGEN 15 mg/dL (7-18); CALCIUM 8.4 mg/dL (8.5-10.1); CHLORIDE 102 mmol/L (98-107); CO2 23 mmol/L (21-32); GLUCOSE,RANDOM 276 mg/dL (74-106); POTASSIUM 3.8 mmol/L (3.5-5.1); SGOT/AST 22 U/L (15-37); SGPT/ALT 44 U/L (13-61); SODIUM 134 mmol/L (136-145); TOT PROT 7.6 g/dl (6.4-8.2)
[2018-05-04 01:37] VITALS: BP 131/74; PULSE 94; TEMP 98
== END 2018-05-03 23:55 | disposition home or self-care (01) ==
LOC: JINFUSION 20:39 → J7W 20:40 → JINFUSION 23:55
PROVIDERS: ATTEND Internal Medicine Infectious Disease
DX: E11.621 Type 2 diabetes mellitus with foot ulcer (principal); L97.412 Non-pressure chronic ulcer of right heel and midfoot with fat layer exposed; B95.1 Streptococcus, group B, as the cause of diseases classified elsewhere; Z79.4 Long term (current) use of insulin
CPT/HCPCS: 36415; 80053; 85027; 96365; 96366; G0480

== ENCOUNTER 2018-05-04 07:41 | Day surgery (SDC) | payer OTHER ==
[2018-05-04 08:57] VITALS: TEMP 97.7
[2018-05-04] MEDS ORDERED: VANCOMYCIN 1,500 MG in SODIUM CHLORIDE 500 ML IVPB ONE (09:00)
[2018-05-04 11:31] VITALS: BP 138/88; PULSE 89
== END 2018-05-04 11:56 | disposition home or self-care (01) ==
LOC: JINFUSION 07:41
PROVIDERS: ATTEND Internal Medicine Infectious Disease
DX: E11.621 Type 2 diabetes mellitus with foot ulcer (principal); L97.412 Non-pressure chronic ulcer of right heel and midfoot with fat layer exposed; B95.1 Streptococcus, group B, as the cause of diseases classified elsewhere; Z79.4 Long term (current) use of insulin
CPT/HCPCS: 96365; 96366

== ENCOUNTER 2018-05-04 19:45 | Day surgery (SDC) | payer OTHER ==
[2018-05-04] MEDS ORDERED: VANCOMYCIN 1,500 MG in DEXTROSE 5%-WATER - 500 ML IVPB ONE (20:00)
[2018-05-04 21:54] VITALS: BP 121/78; PULSE 83; TEMP 98.1
== END 2018-05-04 23:20 | disposition home or self-care (01) ==
LOC: JINFUSION 19:45 → J7W 19:46 → JINFUSION 23:15
PROVIDERS: ATTEND Internal Medicine Infectious Disease
DX: E11.621 Type 2 diabetes mellitus with foot ulcer (principal); L97.412 Non-pressure chronic ulcer of right heel and midfoot with fat layer exposed; B95.1 Streptococcus, group B, as the cause of diseases classified elsewhere; Z79.4 Long term (current) use of insulin
CPT/HCPCS: 96365; 96366

== ENCOUNTER 2018-05-05 07:42 | Day surgery (SDC) | payer OTHER ==
[2018-05-05] MEDS ORDERED: VANCOMYCIN 1,750 MG in DEXTROSE 5%-WATER - 500 ML IVPB SCH (08:00)
[2018-05-05 08:08] VITALS: TEMP 99
[2018-05-05 10:40] VITALS: BP 140/88; PULSE 88
[2018-05-05] MEDS ORDERED: VANCOMYCIN 1,500 MG in DEXTROSE 5%-WATER - 500 ML IVPB SCH (20:00)
== END 2018-05-05 10:47 | disposition home or self-care (01) ==
LOC: JINFUSION 07:42
PROVIDERS: ATTEND Internal Medicine Infectious Disease
DX: E11.621 Type 2 diabetes mellitus with foot ulcer (principal); L97.412 Non-pressure chronic ulcer of right heel and midfoot with fat layer exposed; Z79.4 Long term (current) use of insulin
CPT/HCPCS: 96365; 96366

== ENCOUNTER 2018-05-05 19:43 | Day surgery (SDC) | payer OTHER ==
[2018-05-05] MEDS ORDERED: VANCOMYCIN 1,500 MG in DEXTROSE 5%-WATER - 500 ML IVPB ONE (20:15)
[2018-05-05 20:57] VITALS: BP 132/82; PULSE 89; TEMP 98.4
== END 2018-05-05 22:30 | disposition home or self-care (01) ==
LOC: J7W 19:43 → JINFUSION 19:43
PROVIDERS: ATTEND Internal Medicine Infectious Disease
DX: E11.621 Type 2 diabetes mellitus with foot ulcer (principal); L97.412 Non-pressure chronic ulcer of right heel and midfoot with fat layer exposed; Z79.4 Long term (current) use of insulin
CPT/HCPCS: 96365

== ENCOUNTER 2018-05-06 07:21 | Day surgery (SDC) | payer OTHER ==
[2018-05-06 07:42] VITALS: TEMP 97.7
[2018-05-06] MEDS ORDERED: VANCOMYCIN 1,750 MG in SODIUM CHLORIDE 500 ML IVPB ONE (08:00)
[2018-05-06 10:58] VITALS: BP 143/89; PULSE 81
== END 2018-05-06 10:50 | disposition home or self-care (01) ==
LOC: JINFUSION 07:21
PROVIDERS: ATTEND Internal Medicine Infectious Disease
DX: E11.621 Type 2 diabetes mellitus with foot ulcer (principal); L97.412 Non-pressure chronic ulcer of right heel and midfoot with fat layer exposed; Z79.4 Long term (current) use of insulin
CPT/HCPCS: 96365; 96366

== ENCOUNTER 2018-05-06 19:38 | Day surgery (SDC) | payer OTHER ==
[2018-05-06] MEDS ORDERED: VANCOMYCIN 1,500 MG in DEXTROSE 5%-WATER - 500 ML IVPB ONE (20:30)
== END 2018-05-06 23:00 | disposition home or self-care (01) ==
LOC: JINFUSION 19:38 → J7W 19:39 → JINFUSION 23:00
PROVIDERS: ATTEND Internal Medicine Infectious Disease
DX: E11.621 Type 2 diabetes mellitus with foot ulcer (principal); L97.412 Non-pressure chronic ulcer of right heel and midfoot with fat layer exposed; Z79.4 Long term (current) use of insulin
CPT/HCPCS: 96365

== ENCOUNTER 2018-05-07 07:27 | Day surgery (SDC) | payer OTHER ==
[2018-05-07] MEDS ORDERED: VANCOMYCIN 1,500 MG in SODIUM CHLORIDE 500 ML IVPB ONE (09:00)
[2018-05-07 11:30] VITALS: BP 137/85; PULSE 83; TEMP 98.3
== END 2018-05-07 11:30 | disposition home or self-care (01) ==
LOC: JINFUSION 07:27 → J7W 07:32 → JINFUSION 11:30
PROVIDERS: ATTEND Pediatrics
DX: E11.621 Type 2 diabetes mellitus with foot ulcer (principal); L97.412 Non-pressure chronic ulcer of right heel and midfoot with fat layer exposed; Z79.4 Long term (current) use of insulin
CPT/HCPCS: 96365; 96366

== ENCOUNTER 2018-05-07 20:27 | Day surgery (SDC) | payer OTHER ==
[~2018-05-07 20:27] MED LIST changes: -VANCOMYCIN 1,500 MG in DEXTROSE 5%-WATER - 500 ML IVPB ONE; +VANCOMYCIN 1,500 MG in SODIUM CHLORIDE 500 ML IVPB ONE
[2018-05-07] MEDS ORDERED: VANCOMYCIN 1,500 MG in DEXTROSE 5%-WATER - 500 ML IVPB ONE (20:45)
[2018-05-08 02:35] VITALS: BP 135/77; PULSE 80; TEMP 98
== END 2018-05-07 22:45 | disposition home or self-care (01) ==
LOC: JINFUSION 20:27 → J7W 20:29 → JINFUSION 22:45
PROVIDERS: ATTEND Pediatrics
DX: E11.621 Type 2 diabetes mellitus with foot ulcer (principal); L97.412 Non-pressure chronic ulcer of right heel and midfoot with fat layer exposed; Z79.4 Long term (current) use of insulin
CPT/HCPCS: 96365

== ENCOUNTER 2018-05-08 07:34 | Day surgery (SDC) | payer OTHER ==
[2018-05-08] MEDS ORDERED: VANCOMYCIN 1,500 MG in SODIUM CHLORIDE 500 ML IVPB ONE (09:15)
[2018-05-08 09:30] VITALS: TEMP 97.7
[2018-05-08 11:12] VITALS: BP 147/96; PULSE 80
== END 2018-05-08 11:45 | disposition home or self-care (01) ==
LOC: JINFUSION 07:34 → J7W 07:37 → JINFUSION 11:45
PROVIDERS: ATTEND Pediatrics
DX: E11.621 Type 2 diabetes mellitus with foot ulcer (principal); L97.412 Non-pressure chronic ulcer of right heel and midfoot with fat layer exposed; Z79.4 Long term (current) use of insulin
CPT/HCPCS: 96365; 96366

== ENCOUNTER 2018-05-08 20:24 | Day surgery (SDC) | payer OTHER ==
[2018-05-08] MEDS ORDERED: VANCOMYCIN 1,500 MG in DEXTROSE 5%-WATER - 500 ML IVPB ONE (20:45)
[2018-05-08 21:09] VITALS: BP 131/68; PULSE 77; TEMP 98.4
== END 2018-05-08 22:45 | disposition home or self-care (01) ==
LOC: JINFUSION 20:24 → J7W 20:25 → JINFUSION 22:30
PROVIDERS: ATTEND Pediatrics
DX: E11.621 Type 2 diabetes mellitus with foot ulcer (principal); L97.412 Non-pressure chronic ulcer of right heel and midfoot with fat layer exposed; Z79.4 Long term (current) use of insulin
CPT/HCPCS: 96365; 96366

== ENCOUNTER 2018-05-09 07:47 | Day surgery (SDC) | payer OTHER ==
[2018-05-09] MEDS ORDERED: VANCOMYCIN 1,750 MG in DEXTROSE 5%-WATER - 500 ML IVPB ONE (09:00)
[2018-05-09] MEDS ORDERED: VANCOMYCIN 1,750 MG in SODIUM CHLORIDE 500 ML IVPB ONE (09:30)
[2018-05-09 10:09] VITALS: TEMP 97.8
[2018-05-09 12:03] VITALS: BP 143/87; PULSE 86
[2018-05-09] MEDS ORDERED: VANCOMYCIN 1,500 MG in DEXTROSE 5%-WATER - 500 ML IVPB ONE (21:00)
[2018-05-09] MEDS ORDERED: VANCOMYCIN 1,500 MG in SODIUM CHLORIDE 500 ML IVPB ONE (21:00)
== END 2018-05-09 12:14 | disposition home or self-care (01) ==
LOC: JINFUSION 07:47
PROVIDERS: ATTEND Pediatrics
DX: E11.621 Type 2 diabetes mellitus with foot ulcer (principal); L97.412 Non-pressure chronic ulcer of right heel and midfoot with fat layer exposed; Z79.4 Long term (current) use of insulin
CPT/HCPCS: 96365; 96366

== ENCOUNTER 2018-05-09 19:51 | Day surgery (SDC) | payer OTHER ==
[2018-05-09] MEDS ORDERED: VANCOMYCIN 1,500 MG in DEXTROSE 5%-WATER - 500 ML IVPB ONE (20:45)
[2018-05-10 10:49] VITALS: TEMP 98.7
[2018-05-10 12:02] VITALS: BP 137/87; PULSE 86
== END 2018-05-10 12:09 | disposition home or self-care (01) ==
LOC: JINFUSION 19:51 → J7W 19:52 → JINFUSION 05-10 12:09
PROVIDERS: ATTEND Pediatrics
DX: E11.65 Type 2 diabetes mellitus with hyperglycemia (principal); L97.425 Non-pressure chronic ulcer of left heel and midfoot with muscle involvement without evidence of necrosis; Z79.4 Long term (current) use of insulin
CPT/HCPCS: 96365; 96366

== ENCOUNTER 2018-05-10 07:41 | Day surgery (SDC) | payer OTHER ==
[2018-05-10] MEDS ORDERED: VANCOMYCIN 1,500 MG in DEXTROSE 5%-WATER - 500 ML IVPB ONE (09:00)
[2018-05-10 10:58] VITALS: TEMP 98.7
[2018-05-10 12:06] VITALS: BP 137/87; PULSE 86
== END 2018-05-10 12:09 | disposition home or self-care (01) ==
LOC: JINFUSION 07:41 → J7W 07:42 → JINFUSION 12:09
PROVIDERS: ATTEND Internal Medicine Infectious Disease
DX: E11.621 Type 2 diabetes mellitus with foot ulcer (principal); L97.412 Non-pressure chronic ulcer of right heel and midfoot with fat layer exposed; Z79.4 Long term (current) use of insulin
CPT/HCPCS: 96365; 96366

== ENCOUNTER 2018-05-10 20:09 | Day surgery (SDC) | payer OTHER ==
[2018-05-10] MEDS ORDERED: VANCOMYCIN 1,500 MG in DEXTROSE 5%-WATER - 500 ML IVPB ONE (20:30)
[2018-05-10 21:33] LABS: HEMATOCRIT 38.5 % (35.4-49); HEMOGLOBIN 13.4 GM/dL (11.7-16.9); MCH 27.5 pg (25.7-33.7); MCHC 34.8 g/dl (32.0-35.9); PLATELET COUNT 210 K/MM3 (134-434); RBC 4.87 M/mm3 (4.00-5.60); RDW 14.9 % (11.9-15.9); WHITE BLOOD COUNT 6.6 K/mm3 (4.0-10.0)
[2018-05-11 00:52] VITALS: BP 130/77; PULSE 77; TEMP 98
== END 2018-05-10 23:30 | disposition home or self-care (01) ==
LOC: JINFUSION 20:09
PROVIDERS: ATTEND Pediatrics
DX: E11.621 Type 2 diabetes mellitus with foot ulcer (principal); L97.412 Non-pressure chronic ulcer of right heel and midfoot with fat layer exposed; Z79.4 Long term (current) use of insulin
CPT/HCPCS: 36415; 85027; 96365; 96366; G0480

== ENCOUNTER 2018-05-11 07:48 | Day surgery (SDC) | payer OTHER ==
[2018-05-11] MEDS ORDERED: VANCOMYCIN 1,500 MG in SODIUM CHLORIDE 500 ML IVPB ONE (08:15)
[2018-05-11] MEDS ORDERED: VANCOMYCIN 1,750 MG in SODIUM CHLORIDE 500 ML IVPB ONE (08:15)
[2018-05-11 08:38] VITALS: TEMP 98.6
[2018-05-11 12:51] VITALS: BP 130/76; PULSE 88
== END 2018-05-11 11:40 | disposition home or self-care (01) ==
LOC: JINFUSION 07:48
PROVIDERS: ATTEND Pediatrics
DX: E11.621 Type 2 diabetes mellitus with foot ulcer (principal); L97.412 Non-pressure chronic ulcer of right heel and midfoot with fat layer exposed; Z79.4 Long term (current) use of insulin
CPT/HCPCS: 96365; 96366

== ENCOUNTER 2018-05-11 20:36 | Day surgery (SDC) | payer OTHER ==
[2018-05-11] MEDS ORDERED: VANCOMYCIN 1,500 MG in DEXTROSE 5%-WATER - 500 ML IVPB ONE (21:00)
[2018-05-11 23:50] VITALS: BP 127/78; PULSE 80; TEMP 98.6
== END 2018-05-11 23:10 | disposition home or self-care (01) ==
LOC: JINFUSION 20:36 → J7W 22:57 → JINFUSION 23:05
PROVIDERS: ATTEND Pediatrics
DX: E11.621 Type 2 diabetes mellitus with foot ulcer (principal); L97.412 Non-pressure chronic ulcer of right heel and midfoot with fat layer exposed; Z79.4 Long term (current) use of insulin
CPT/HCPCS: 96365; 96366

== ENCOUNTER 2018-05-12 07:55 | Day surgery (SDC) | payer OTHER ==
[2018-05-12] MEDS ORDERED: SODIUM CHLORIDE IVPB ONE (08:00)
[2018-05-12] MEDS ORDERED: VANCOMYCIN IVPB ONE (08:00)
[2018-05-12 08:10] VITALS: TEMP 97.9
[2018-05-12 11:37] VITALS: BP 135/82; PULSE 88
[2018-05-12] MEDS ORDERED: VANCOMYCIN 1,500 MG in SODIUM CHLORIDE 500 ML IVPB ONE (21:00)
== END 2018-05-12 11:37 | disposition home or self-care (01) ==
LOC: JINFUSION 07:55
PROVIDERS: ATTEND Pediatrics
DX: E11.621 Type 2 diabetes mellitus with foot ulcer (principal); L97.412 Non-pressure chronic ulcer of right heel and midfoot with fat layer exposed; Z79.4 Long term (current) use of insulin
CPT/HCPCS: 96365; 96366

== ENCOUNTER 2018-05-12 19:54 | Day surgery (SDC) | payer OTHER ==
[2018-05-12] MEDS ORDERED: VANCOMYCIN 1,500 MG in DEXTROSE 5%-WATER - 500 ML IVPB ONE (20:15)
[2018-05-12 23:27] VITALS: BP 145/81; PULSE 87; TEMP 98
== END 2018-05-12 23:44 | disposition home or self-care (01) ==
LOC: JINFUSION 19:54 → J7W 19:54 → JINFUSION 23:44
PROVIDERS: ATTEND Pediatrics
DX: E11.621 Type 2 diabetes mellitus with foot ulcer (principal); L97.412 Non-pressure chronic ulcer of right heel and midfoot with fat layer exposed; Z79.4 Long term (current) use of insulin
CPT/HCPCS: 96365; 96366

== ENCOUNTER 2021-09-01 10:04 | Emergency (ER) | payer OTHER ==
[2021-09-01 10:26] VITALS: BP 147/84; PULSE 96; TEMP 97.7; BMI 38.0
== END 2021-09-01 13:11 | disposition home or self-care (01) ==
LOC: JERFT 10:04
DX: S80.812A Abrasion, left lower leg, initial encounter (principal); M25.512 Pain in left shoulder; M25.562 Pain in left knee; M54.2 Cervicalgia; W01.0XXA Fall on same level from slipping, tripping and stumbling without subsequent striking against object, initial encounter
CPT/HCPCS: 72050-TC-FY; 73030-TC-LT-FY; 73562-TC-LT-FY; 99285-25